=== PATIENT | male | born 1965 | race Two or more races ===

== ENCOUNTER 2017-06-29 11:49 | Inpatient (IN) | payer OTHER ==
[~2017-06-29] VITALS: Ht 182.9 cm; Wt 93.6 kg
[~2017-06-29 11:49] MED LIST: ACET-1757 PO; ALLO300T PO; ALPR-475 PO; BENA10TA2 PO; BISA10SU2 PO; BISA10SU2 PR; DOCU-131 PO; DOCU100T3 PO; HYDR-3237 PO; INSU100V11 SQ-INSULIN; LACT10SO28 PO; LISI-170 PO; LORA1TAB PO; MORP15TA PO; ONDA4TAB10 PO; ONDA8TAB15 PO; OXYC5TAB3 PO; POLY17PO5 PO; PRED50TA PO; PROM25TA10 PO; SENN-31 PO; SENN-87 PO
[2017-06-29] MEDS ORDERED: ONDANSETRON 2MG/ML, 2ML ONE (12:55)
[2017-06-29] MEDS ORDERED: MORPHINE SULFATE 4 MG/ML, 1ML ONE (12:55)
[2017-06-29] MEDS ORDERED: ALBUTEROL SULFATE 2.5 MG/3 ML NPPB ONE (13:00)
[2017-06-29] MEDS ORDERED: MORPHINE SULFATE 4 MG/ML, 1ML IVPush PRN (13:00)
[2017-06-29] MEDS ORDERED: SODIUM CHLORIDE FLUSH 10ML SYR IVF ONE (13:00)
[2017-06-29] MEDS ORDERED: ONDANSETRON 2MG/ML, 2ML IVPush ONE (13:00)
[2017-06-29] MEDS ORDERED: SODIUM CHLORIDE 0.9% 1,000ML IVBOLUS ONE (13:00)
[2017-06-29 13:12] LABS: HEMATOCRIT 47.4 % (39.2-51.8); HEMOGLOBIN 16.3 g/dL (13.7-18.0); WHITE BLOOD COUNT 9.9 x10^3/uL (3.4-10)
[2017-06-29 13:21] LABS: ASPARTATE AMINO TRANSFERASE 37 U/L (15-37); BLOOD UREA NITROGEN 13 mg/dL (7-18)
[2017-06-29] MEDS ORDERED: ALBUTEROL SULFATE 2.5 MG/3 ML ONE (13:39)
[2017-06-29 13:40] LABS: RAPID INFLUENZA A POSITIVE (Negative); RAPID INFLUENZA B Negative (Negative)
[2017-06-29 14:00] VITALS: BP 133/72
[2017-06-29 14:00] LABS: IS PT STATUS REG ER OR PRE ER? YES
[2017-06-29] MEDS ORDERED: OMNIPAQUE 350 MG/ML, 100ML BOTTLE ONE (14:34)
[2017-06-29] MEDS ORDERED: ACETAMINOPHEN 500 MG TABLET ONE (14:50)
[2017-06-29] MEDS ORDERED: ACETAMINOPHEN 500 MG TABLET PO ONE (15:00)
[2017-06-29] MEDS ORDERED: ONDANSETRON ODT 4 MG PO PRN (15:30)
[2017-06-29] MEDS ORDERED: ACETAMINOPHEN 325 MG TABLET PO PRN (15:30)
[2017-06-29 15:53] LABS: PATH.CAST-FLAG NOT PRESENT; SPERM-FLAG NOT PRESENT; SRC-FLAG NOT PRESENT; XTAL-FLAG NOT PRESENT; YLC-FLAG NOT PRESENT
[2017-06-29] MEDS: ONDANSETRON 2MG/ML, 2ML IVPush PRN ×2 (16:09→21:43)
[2017-06-29] MEDS: ENOXAPARIN 40 MG/0.4 ML SQ SCH (16:39)
[2017-06-29] MEDS: PIPERACILLIN/TAZO/PMX 3.375GM 50 ML IV SCH (16:39)
[2017-06-29] MEDS: SODIUM CHLORIDE 0.9% 1,000 ML IV SCH (16:40)
[2017-06-29 17:41] VITALS: BP 123/73
[2017-06-29 19:02] VITALS: BP 130/74
[2017-06-29] MEDS: OSELTAMIVIR 75 MG CAPSULE PO SCH (21:37)
[2017-06-30] MEDS: PIPERACILLIN/TAZO/PMX 3.375GM 50 ML IV SCH ×4 (00:21→23:28)
[2017-06-30 02:52] VITALS: BP 120/71
[2017-06-30] MEDS: ONDANSETRON 2MG/ML, 2ML IVPush PRN ×5 (03:49→20:42)
[2017-06-30] MEDS: SODIUM CHLORIDE 0.9% 1,000 ML IV SCH ×2 (03:50→14:28)
[2017-06-30 05:49] LABS: BLOOD UREA NITROGEN 11 mg/dL (7-18)
[2017-06-30 05:53] LABS: ASPARTATE AMINO TRANSFERASE 34 U/L (15-37); LACTATE DEHYDROGENASE 240 U/L (87-241)
[2017-06-30 06:07] LABS: HEMATOCRIT 39.5 % (39.2-51.8)
[2017-06-30 07:59] VITALS: BP 152/90
[2017-06-30] MEDS: OSELTAMIVIR 75 MG CAPSULE PO SCH ×2 (08:46→20:29)
[2017-06-30] MEDS ORDERED: PHENOL THROAT SPRAY BOTTLE MM PRN (12:30)
[2017-06-30] MEDS ORDERED: LIDOCAINE 1%, 20ML ONE ×2 (13:41→14:30)
[2017-06-30 15:23] VITALS: BP 119/80
[2017-06-30 15:24] LABS: CYTOLOGY BODY FLUID RECD INTO PATHOLOGY; CYTOLOGY BODY FLUID SOURCE PLEURAL FLUID
[2017-06-30 19:36] VITALS: BP 99/63
[2017-06-30] MEDS: ENOXAPARIN 40 MG/0.4 ML SQ SCH (20:30)
[2017-07-01 00:44] VITALS: BP 118/76
[2017-07-01] MEDS: ONDANSETRON 2MG/ML, 2ML IVPush PRN ×5 (03:35→23:45)
[2017-07-01 05:03] LABS: HEMOGLOBIN 13.9 g/dL (13.7-18.0); WHITE BLOOD COUNT 4.1 x10^3/uL (3.4-10)
[2017-07-01 05:10] LABS: ASPARTATE AMINO TRANSFERASE 33 U/L (15-37); BLOOD UREA NITROGEN 12 mg/dL (7-18)
[2017-07-01] MEDS: SODIUM CHLORIDE 0.9% 1,000 ML IV SCH ×3 (05:33→19:57)
[2017-07-01 07:28] VITALS: BP 123/76
[2017-07-01] MEDS: OSELTAMIVIR 75 MG CAPSULE PO SCH ×2 (08:58→19:50)
[2017-07-01] MEDS: PIPERACILLIN/TAZO/PMX 3.375GM 50 ML IV SCH ×3 (08:58→23:46)
[2017-07-01 13:10] VITALS: BP 115/68
[2017-07-01] MEDS ORDERED: POLYETHYLENE GLYCOL 17 GM PACKET ONE (17:48)
[2017-07-01] MEDS ORDERED: POLYETHYLENE GLYCOL 17 GM PACKET NG PRN (18:00)
[2017-07-01 19:42] VITALS: BP 126/78
[2017-07-01] MEDS: ENOXAPARIN 40 MG/0.4 ML SQ SCH (19:50)
[2017-07-02 03:26] VITALS: BP 122/72
[2017-07-02] MEDS: ONDANSETRON 2MG/ML, 2ML IVPush PRN ×2 (04:16→19:52)
[2017-07-02 04:51] LABS: BLOOD UREA NITROGEN 9 mg/dL (7-18)
[2017-07-02 04:52] LABS: HEMATOCRIT 39.2 % (39.2-51.8); HEMOGLOBIN 13.6 g/dL (13.7-18.0); WHITE BLOOD COUNT 2.8 x10^3/uL (3.4-10)
[2017-07-02 06:14] LABS: DIFF TOTAL CELLS COUNTED 100 CELL DIFF
[2017-07-02 06:18] LABS: VERIFY COUNTS? YES
[2017-07-02 08:30] VITALS: BP 113/73
[2017-07-02] MEDS: PIPERACILLIN/TAZO/PMX 3.375GM 50 ML IV SCH (08:33)
[2017-07-02] MEDS: OSELTAMIVIR 75 MG CAPSULE PO SCH ×2 (08:33→20:55)
[2017-07-02 13:04] VITALS: BP 123/71
[2017-07-02] MEDS: PIPERACILLIN/TAZO 3.375 GM in SODIUM CHLORIDE 0.9% 50 ML IV SCH (16:06)
[2017-07-02 19:14] VITALS: BP 111/68
[2017-07-02] MEDS: ENOXAPARIN 40 MG/0.4 ML SQ SCH (20:55)
[2017-07-02] MEDS: SODIUM CHLORIDE 0.9% 1,000 ML IV SCH (20:57)
[2017-07-02 22:53] VITALS: BP 122/74
[2017-07-03 01:33] VITALS: BP 102/63
[2017-07-03 05:05] LABS: HEMOGLOBIN 15.5 g/dL (13.7-18.0); WHITE BLOOD COUNT 3.2 x10^3/uL (3.4-10)
[2017-07-03 07:09] VITALS: BP 134/88
[2017-07-03] MEDS ORDERED: AZIT500T5 PO (07:56)
[2017-07-03] MEDS ORDERED: AMOX-291 PO (07:56)
[2017-07-03] MEDS ORDERED: OSEL75CA PO (07:56)
[2017-07-03] MEDS: OSELTAMIVIR 75 MG CAPSULE PO SCH (08:49)
[2017-07-03] MEDS: PIPERACILLIN/TAZO 3.375 GM in SODIUM CHLORIDE 0.9% 50 ML IV SCH ×2 (08:49)
== END 2017-07-03 10:28 | disposition home or self-care (01) | DRG 872 ==
LOC: ED 13:51 → EDIP 14:12 → 3NE 15:31 → 3NW 18:29
PROVIDERS: ADMIT Hospitalist; ATTEND Hospitalist
PROC: 0W993ZZ Drainage of Right Pleural Cavity, Percutaneous Approach (ICD-10-PCS; principal; 2017-06-30)
PROC: BB4BZZZ Ultrasonography of Pleura (ICD-10-PCS; 2017-06-30)
DX: A41.9 Sepsis, unspecified organism (principal); J90 Pleural effusion, not elsewhere classified; Z94.84 Stem cells transplant status; E11.9 Type 2 diabetes mellitus without complications; E86.0 Dehydration; I10 Essential (primary) hypertension; K59.00 Constipation, unspecified; J11.1 Influenza due to unidentified influenza virus with other respiratory manifestations; Z79.84 Long term (current) use of oral hypoglycemic drugs; Z83.3 Family history of diabetes mellitus
CPT/HCPCS: 32555; 36415; 71010; 71020; 71275; 74177; 80048; 80053; 81001; 82945; 83605; 83615; 83690; 83735; 83880; 84145; 84157; 84484; 85025; 87040; 87070; 87081; 87205; 87324; 87400; 87880; 88112; 88305; 89051; 89055; 93005; 94640; 96361; 96374; 96375; J1650; J2405; J2543; J3490; J7613; Q0162; Q9967; J7030

== ENCOUNTER → 2017-07-21 | Outpatient (CLI) | payer OTHER ==
[~2017-07-21] MED LIST changes: +AMOX-291 PO; +AZIT500T5 PO; +OSEL75CA PO
== END ==
LOC: PETCFH 13:49
PROVIDERS: ATTEND Internal Medicine Hematology & Oncology
DX: C83.38 Diffuse large B-cell lymphoma, lymph nodes of multiple sites (principal); C82.30 Follicular lymphoma grade IIIa, unspecified site; J90 Pleural effusion, not elsewhere classified
CPT/HCPCS: 78815; A9552

== ENCOUNTER 2018-02-06 16:11 | Inpatient (IN) | payer OTHER ==
[~2018-02-06] VITALS: Ht 182.9 cm; Wt 84.6 kg
[~2018-02-06 16:11] MED LIST changes: -BENA10TA2 PO; +BENA10TA4 PO
[2018-02-06 16:58] VITALS: BP 138/86
[2018-02-06] MEDS ORDERED: ENALAPRILAT 1.25 MG/ML, 2ML IVPush PRN (17:30)
[2018-02-06] MEDS: PLEASE ENTER HEIGHT AND WEIGHT MC SCH ×2 (17:30→19:38)
[2018-02-06] MEDS ORDERED: MAALOX/HYOSCYAMINE/LIDOCAINE 45 ML BTL PO PRN (17:30)
[2018-02-06] MEDS ORDERED: LABETALOL 5MG/ML, 20ML IVPush PRN (17:30)
[2018-02-06] MEDS ORDERED: ONDANSETRON 2MG/ML, 2ML IVPush PRN (17:30)
[2018-02-06] MEDS ORDERED: DOCUSATE 100 MG CAPSULE PO PRN (17:30)
[2018-02-06] MEDS ORDERED: BISACODYL 10 MG SUPP PR PRN (17:30)
[2018-02-06] MEDS ORDERED: ACETAMINOPHEN 325 MG TABLET PO PRN (17:30)
[2018-02-06] MEDS ORDERED: POLYETHYLENE GLYCOL 17 GM PACKET PO PRN (17:30)
[2018-02-06] MEDS ORDERED: HYDROcodone/APAP 5/325 TABLET PO PRN (17:30)
[2018-02-06 18:30] LABS: BASOPHILS # (AUTO) 0.02 x10^3/uL (0-0.1); BASOPHILS % (AUTO) 0 % (0-1); EOSINOPHILS # (AUTO) 0.18 x10^3/uL (0-0.4); EOSINOPHILS % (AUTO) 2 % (1-7); LYMPHOCYTES % (AUTO) 10 % (22-44); MD NO; MEAN CORPUSCULAR HEMOGLOBIN 33.6 pg (27.5-34.5); MEAN CORPUSCULAR HGB CONC 34.7 g/dL (33.2-36.2); MEAN CORPUSCULAR VOLUME 96.9 fL (81-97); MEAN PLATELET VOLUME 7.1 fL (7.4-10.4); MONOCYTES # (AUTO) 0.71 x10^3/uL (0.2-0.8); MONOCYTES % (AUTO) 7 % (2-9); NEUTROPHILS # (AUTO) 8.43 x10^3/uL (1.8-6.8); NEUTROPHILS % (AUTO) 82 % (42-75); PLATELET COUNT 264 x10^3/uL (130-400); RED CELL DISTRIBUTION WIDTH 13.6 % (9.4-14.8)
[2018-02-06] MEDS ORDERED: GUAIFENESIN 100 MG/5 ML, 10ML UDC ONE (18:38)
[2018-02-06] MEDS: GUAIFENESIN/DM 200-20MG, 10ML UDC PO PRN (18:41)
[2018-02-06] MEDS ORDERED: GUAIFENESIN/DM 200-20MG, 10ML UDC ONE (18:41)
[2018-02-06 18:43] LABS: ALBUMIN 3.8 g/dL (3.4-5.0); ANION GAP 6 mmol/L (5-15); CALCIUM 9.1 mg/dL (8.5-10.1); CHLORIDE 106 mmol/L (98-107)
[2018-02-06 18:48] LABS: ALANINE AMINOTRANSFERASE 23 U/L (12-78); ALKALINE PHOSPHATASE 107 U/L (45-117); BILIRUBIN,TOTAL 0.7 mg/dL (0.2-1.0); CREATININE 0.97 mg/dL (0.7-1.3); TOTAL PROTEIN 6.7 g/dL (6.4-8.2)
[2018-02-06 19:50] VITALS: BP 147/84
[2018-02-06] MEDS: FAMOTIDINE 20 MG TABLET PO SCH (20:11)
[2018-02-06 22:50] LABS: MICROSCOPIC NOT IND
[2018-02-06 22:54] LABS: CULTURE INDICATED? NO
[2018-02-07 00:51] VITALS: BP 143/75
[2018-02-07] MEDS: PLEASE ENTER HEIGHT AND WEIGHT MC SCH ×3 (07:44→19:37)
[2018-02-07] MEDS: FAMOTIDINE 20 MG TABLET PO SCH ×2 (07:52→19:24)
[2018-02-07] MEDS: GUAIFENESIN/DM 200-20MG, 10ML UDC PO PRN ×2 (07:52→17:09)
[2018-02-07] MEDS: morphine SULFATE 10 MG/ML, 1ML IVPush PRN (08:11)
[2018-02-07 08:20] VITALS: BP 136/80
[2018-02-07 13:50] VITALS: BP 131/82
[2018-02-07 19:04] VITALS: BP 143/85
[2018-02-07] MEDS: ONDANSETRON ODT 4 MG PO PRN (19:24)
[2018-02-08] MEDS: GUAIFENESIN/DM 200-20MG, 10ML UDC PO PRN ×3 (01:47→20:01)
[2018-02-08 03:58] VITALS: BP 118/78
[2018-02-08] MEDS: FAMOTIDINE 20 MG TABLET PO SCH ×2 (07:33→20:00)
[2018-02-08 07:44] VITALS: BP 124/81
[2018-02-08 14:11] VITALS: BP 130/71
[2018-02-08] MEDS ORDERED: LIDOCAINE-MPF 1%, 2ML ONE ×2 (15:38)
[2018-02-08] MEDS: morphine SULFATE 10 MG/ML, 1ML IVPush PRN (17:10)
[2018-02-08 19:52] VITALS: BP 119/72
[2018-02-09 00:56] VITALS: BP 122/75
[2018-02-09] MEDS: GUAIFENESIN/DM 200-20MG, 10ML UDC PO PRN (02:15)
[2018-02-09 05:27] LABS: BASOPHILS # (AUTO) 0.01 x10^3/uL (0-0.1); BASOPHILS % (AUTO) 0 % (0-1); EOSINOPHILS # (AUTO) 0.33 x10^3/uL (0-0.4); EOSINOPHILS % (AUTO) 3 % (1-7); LYMPHOCYTES # (AUTO) 0.89 x10^3/uL (1-3.4); LYMPHOCYTES % (AUTO) 9 % (22-44); MD NO; MEAN CORPUSCULAR HEMOGLOBIN 32.7 pg (27.5-34.5); MEAN CORPUSCULAR HGB CONC 33.9 g/dL (33.2-36.2); MEAN CORPUSCULAR VOLUME 96.5 fL (81-97); MEAN PLATELET VOLUME 6.9 fL (7.4-10.4); MONOCYTES # (AUTO) 1.03 x10^3/uL (0.2-0.8); MONOCYTES % (AUTO) 11 % (2-9); NEUTROPHILS # (AUTO) 7.39 x10^3/uL (1.8-6.8); NEUTROPHILS % (AUTO) 77 % (42-75); PLATELET COUNT 251 x10^3/uL (130-400); RED BLOOD COUNT 4.66 x10^6/uL (4.38-5.82); RED CELL DISTRIBUTION WIDTH 13.3 % (9.4-14.8)
[2018-02-09 05:33] LABS: ANION GAP 6 mmol/L (5-15); CALCIUM 8.9 mg/dL (8.5-10.1); CHLORIDE 107 mmol/L (98-107); CREATININE 1.04 mg/dL (0.7-1.3)
[2018-02-09 07:48] VITALS: BP 120/76
[2018-02-09] MEDS: FAMOTIDINE 20 MG TABLET PO SCH ×2 (07:57→20:03)
[2018-02-09] MEDS ORDERED: MORPHINE SULFATE 4 MG/ML, 1ML ONE (10:48)
[2018-02-09] MEDS: morphine SULFATE 10 MG/ML, 1ML IVPush PRN (10:54)
[2018-02-09] MEDS ORDERED: BUPIVACAINE/PF-EPI 0.5% 1:200K ONE (13:09)
[2018-02-09] MEDS ORDERED: THROMBIN 20,000 UNIT VIAL TP ONE (13:10)
[2018-02-09] MEDS ORDERED: MICROFIBRILLAR COLLAGEN 1 GM TP ONE (13:10)
[2018-02-09 13:20] VITALS: BP 143/96
[2018-02-09] MEDS ORDERED: FENTANYL PF 250 MCG/5ML ONE (13:20)
[2018-02-09] MEDS ORDERED: MIDAZOLAM 1 MG/ML, 2ML ONE (13:20)
[2018-02-09] MEDS ORDERED: PROPOFOL 10 MG/ML, 20ML ONE ×2 (14:02→15:12)
[2018-02-09] MEDS ORDERED: CEFAZOLIN 1,000 MG ONE (14:02)
[2018-02-09] MEDS ORDERED: DEXAMETHASONE 4 MG/ML, 1ML ONE (14:02)
[2018-02-09] MEDS ORDERED: LABETALOL 5MG/ML, 20ML ONE (14:02)
[2018-02-09] MEDS ORDERED: DOXYCYCLINE 100 MG ONE ×2 (14:27→14:33)
[2018-02-09] MEDS ORDERED: DOXYCYCLINE 100 MG in DEXTROSE 5% 250 ML IV ONE (14:30)
[2018-02-09] MEDS ORDERED: hydrALAzine 20 MG/ML, 1ML IV PRN (15:00)
[2018-02-09] MEDS ORDERED: OXYcodone 5 MG/5 ML ORAL.SOL UDC PO PRN (15:00)
[2018-02-09] MEDS ORDERED: LABETALOL 5MG/ML, 20ML IV PRN (15:00)
[2018-02-09] MEDS ORDERED: PROMETHAZINE 12.5 MG SUPP PR PRN (15:00)
[2018-02-09] MEDS ORDERED: ONDANSETRON 2MG/ML, 2ML IV PRN ×2 (15:00→18:00)
[2018-02-09] MEDS ORDERED: ACETAMINOPHEN 325 MG TABLET PO PRN (15:00)
[2018-02-09] MEDS ORDERED: MEPERIDINE/PF 25MG/0.5ML IVPush PRN (15:00)
[2018-02-09] MEDS ORDERED: MORPHINE SULFATE 4 MG/ML, 1ML IVPush PRN (15:00)
[2018-02-09] MEDS ORDERED: ONDANSETRON 2MG/ML, 2ML ONE (15:11)
[2018-02-09] MEDS ORDERED: ROCURONIUM 10MG/ML,5ML ONE (15:12)
[2018-02-09] MEDS ORDERED: OXYcodone 5 MG/5 ML ORAL.SOL UDC ONE (15:26)
[2018-02-09] MEDS ORDERED: FENTANYL PF 100 MCG/2ML ONE ×2 (15:26→15:43)
[2018-02-09] MEDS: FENTANYL PF 100 MCG/2ML IV PRN ×4 (15:28→16:00)
[2018-02-09] MEDS ORDERED: HYDROmorphone 2 MG/ML, 1ML ONE ×2 (15:33→15:43)
[2018-02-09] MEDS: HYDROmorphone 1 MG/ML, 1ML IV PRN ×4 (15:35→15:56)
[2018-02-09] MEDS: ONDANSETRON ODT 4 MG PO PRN (17:52)
[2018-02-09] MEDS ORDERED: LACTATED RINGERS 500 ML IV PRN (18:00)
[2018-02-09] MEDS: ACETAMINOPHEN 500 MG TABLET PO SCH ×2 (18:29→23:56)
[2018-02-09 19:09] VITALS: BP 131/82
[2018-02-09] MEDS: POTASSIUM CHLORIDE 20 MEQ in D5%-0.45% NACL 1,000 ML IV SCH (20:03)
[2018-02-09] MEDS: SODIUM CHLORIDE FLUSH 10ML SYR IVF SCH (20:03)
[2018-02-09] MEDS: morphine SULFATE 10 MG/ML, 1ML IV PRN (23:20)
[2018-02-10 00:17] VITALS: BP 125/79
[2018-02-10] MEDS: morphine SULFATE 10 MG/ML, 1ML IV PRN ×5 (02:22→23:10)
[2018-02-10 05:43] VITALS: BP 124/83
[2018-02-10] MEDS: ACETAMINOPHEN 500 MG TABLET PO SCH ×3 (06:06→18:00)
[2018-02-10 07:29] VITALS: BP 125/76
[2018-02-10] MEDS: ENOXAPARIN 40 MG/0.4 ML SQ SCH (08:22)
[2018-02-10] MEDS: FAMOTIDINE 20 MG TABLET PO SCH ×2 (08:22→19:37)
[2018-02-10] MEDS: SODIUM CHLORIDE FLUSH 10ML SYR IVF SCH ×2 (08:23→19:37)
[2018-02-10] MEDS ORDERED: LIDOCAINE 1%-EPI 1:100K, 20ML INFIL ONE (08:30)
[2018-02-10] MEDS: POTASSIUM CHLORIDE 20 MEQ in D5%-0.45% NACL 1,000 ML IV SCH (10:56)
[2018-02-10 14:30] VITALS: BP 151/99
[2018-02-10 18:46] VITALS: BP 120/77
[2018-02-11] MEDS: POTASSIUM CHLORIDE 20 MEQ in D5%-0.45% NACL 1,000 ML IV SCH ×2 (00:22→12:33)
[2018-02-11] MEDS: ACETAMINOPHEN 500 MG TABLET PO SCH ×4 (00:22→17:20)
[2018-02-11 03:44] VITALS: BP 129/82
[2018-02-11] MEDS: morphine SULFATE 10 MG/ML, 1ML IV PRN ×2 (05:26→11:01)
[2018-02-11] MEDS: ENOXAPARIN 40 MG/0.4 ML SQ SCH (07:39)
[2018-02-11] MEDS: OXYcodone IR 5MG TABLET PO PRN ×3 (07:39→21:33)
[2018-02-11] MEDS: FAMOTIDINE 20 MG TABLET PO SCH ×2 (07:39→21:20)
[2018-02-11] MEDS: SODIUM CHLORIDE FLUSH 10ML SYR IVF SCH ×2 (07:40→21:21)
[2018-02-11 08:18] VITALS: BP 127/86
[2018-02-11 14:30] VITALS: BP 115/76
[2018-02-11 19:15] VITALS: BP 112/72
[2018-02-11] MEDS: ONDANSETRON ODT 4 MG PO PRN (21:27)
[2018-02-12 01:25] VITALS: BP 106/67
[2018-02-12] MEDS: POTASSIUM CHLORIDE 20 MEQ in D5%-0.45% NACL 1,000 ML IV SCH (01:52)
[2018-02-12] MEDS: morphine SULFATE 10 MG/ML, 1ML IV PRN ×2 (03:18→08:43)
[2018-02-12] MEDS: OXYcodone IR 5MG TABLET PO PRN ×2 (03:58→12:16)
[2018-02-12] MEDS: ACETAMINOPHEN 500 MG TABLET PO SCH ×3 (06:19→12:16)
[2018-02-12 07:05] VITALS: BP 134/84
[2018-02-12] MEDS: SODIUM CHLORIDE FLUSH 10ML SYR IVF SCH (08:10)
[2018-02-12] MEDS: ENOXAPARIN 40 MG/0.4 ML SQ SCH (08:10)
[2018-02-12] MEDS: FAMOTIDINE 20 MG TABLET PO SCH (08:10)
[2018-02-12] MEDS ORDERED: OXYC5CAP2 PO (10:17)
[2018-02-12 11:28] VITALS: BP 122/78
== END 2018-02-12 12:33 | disposition home or self-care (01) | DRG 164 ==
LOC: 5SO 16:11 → 4NOR 02-09 16:58
PROVIDERS: ADMIT Internal Medicine; ATTEND Internal Medicine
PROC: 07B74ZX Excision of Thorax Lymphatic, Percutaneous Endoscopic Approach, Diagnostic (ICD-10-PCS; 2018-02-09)
PROC: 0BBN4ZX Excision of Right Pleura, Percutaneous Endoscopic Approach, Diagnostic (ICD-10-PCS; 2018-02-09)
PROC: 3E0L4GC Introduction of Other Therapeutic Substance into Pleural Cavity, Percutaneous Endoscopic Approach (ICD-10-PCS; 2018-02-09)
PROC: 0W994ZX Drainage of Right Pleural Cavity, Percutaneous Endoscopic Approach, Diagnostic (ICD-10-PCS; 2018-02-09)
PROC: 0BBN4ZZ Excision of Right Pleura, Percutaneous Endoscopic Approach (ICD-10-PCS; principal; 2018-02-09 15:00)
DX: J90 Pleural effusion, not elsewhere classified (principal); I31.3 Pericardial effusion (noninflammatory); Z94.84 Stem cells transplant status; E11.40 Type 2 diabetes mellitus with diabetic neuropathy, unspecified; R59.0 Localized enlarged lymph nodes; Z79.84 Long term (current) use of oral hypoglycemic drugs; Z82.49 Family history of ischemic heart disease and other diseases of the circulatory system; Z85.72 Personal history of non-Hodgkin lymphomas; Z87.891 Personal history of nicotine dependence; Z92.21 Personal history of antineoplastic chemotherapy
CPT/HCPCS: 36415; 71045; 80048; 80053; 81003; 83690; 83735; 83880; 84100; 84145; 85025; 87070; 87075; 87081; 87205; 87880; 88112; 88305; 88331; 88341; 88342; 88360; C1729; J0690; J1100; J1170; J1650; J2250; J2405; J2704; J3010; J3480; J3490; J7060; Q0162; G0461; J2270

== ENCOUNTER → 2018-02-17 | Outpatient (CLI) | payer OTHER ==
[~2018-02-17] MED LIST changes: +OXYC5CAP2 PO
== END | disposition home or self-care (01) ==
LOC: PETCFH 10:48
PROVIDERS: ATTEND Internal Medicine Hematology & Oncology
DX: T81.82XA Emphysema (subcutaneous) resulting from a procedure, initial encounter (principal); J32.0 Chronic maxillary sinusitis; J90 Pleural effusion, not elsewhere classified; C83.38 Diffuse large B-cell lymphoma, lymph nodes of multiple sites; C82.30 Follicular lymphoma grade IIIa, unspecified site; D80.3 Selective deficiency of immunoglobulin G [IgG] subclasses
CPT/HCPCS: 78815; A9552

== ENCOUNTER 2018-02-20 10:44 | Inpatient (IN) | payer OTHER ==
[~2018-02-20] VITALS: Ht 182.9 cm; Wt 98.5 kg
[2018-02-20 14:40] VITALS: BP 103/65
[2018-02-20 14:51] LABS: BASOPHILS # (AUTO) 0.03 x10^3/uL (0-0.1); BASOPHILS % (AUTO) 0 % (0-1); EOSINOPHILS % (AUTO) 2 % (1-7); LYMPHOCYTES # (AUTO) 0.72 x10^3/uL (1-3.4); LYMPHOCYTES % (AUTO) 7 % (22-44); MD NO; MEAN CORPUSCULAR HEMOGLOBIN 32.4 pg (27.5-34.5); MEAN CORPUSCULAR HGB CONC 33.8 g/dL (33.2-36.2); MEAN CORPUSCULAR VOLUME 95.7 fL (81-97); MEAN PLATELET VOLUME 6.7 fL (7.4-10.4); MONOCYTES # (AUTO) 0.72 x10^3/uL (0.2-0.8); MONOCYTES % (AUTO) 8 % (2-9); NEUTROPHILS # (AUTO) 7.99 x10^3/uL (1.8-6.8); NEUTROPHILS % (AUTO) 83 % (42-75); PLATELET COUNT 346 x10^3/uL (130-400); RED BLOOD COUNT 3.69 x10^6/uL (4.38-5.82); RED CELL DISTRIBUTION WIDTH 12.6 % (9.4-14.8)
[2018-02-20 15:02] LABS: ALANINE AMINOTRANSFERASE 27 U/L (12-78); ALBUMIN 2.9 g/dL (3.4-5.0); ANION GAP 7 mmol/L (5-15); CALCIUM 8.6 mg/dL (8.5-10.1); CHLORIDE 108 mmol/L (98-107); CREATININE 1.04 mg/dL (0.7-1.3)
[2018-02-20 15:04] LABS: ALKALINE PHOSPHATASE 103 U/L (45-117); BILIRUBIN,TOTAL 0.2 mg/dL (0.2-1.0); TOTAL PROTEIN 5.8 g/dL (6.4-8.2)
[2018-02-20] MEDS ORDERED: LIDOCAINE-MPF 1%, 2ML ONE (15:12)
[2018-02-20] MEDS ORDERED: OXYcodone ORAL.CONC 20 MG/ML ONE (15:45)
[2018-02-20] MEDS ORDERED: ONDANSETRON 2MG/ML, 2ML ONE (15:47)
[2018-02-20] MEDS: ONDANSETRON 2MG/ML, 2ML IVPush PRN (15:50)
[2018-02-20] MEDS: OXYcodone 5 MG/5 ML ORAL.SOL UDC PO PRN ×2 (15:52→22:33)
[2018-02-20] MEDS ORDERED: PROCHLORPERAZINE 5 MG/ML, 2ML IVPush PRN (16:00)
[2018-02-20] MEDS ORDERED: ONDANSETRON 8 MG TABLET PO PRN (16:00)
[2018-02-20] MEDS ORDERED: ACETAMINOPHEN 325 MG TABLET PO ONE (17:00)
[2018-02-20] MEDS: predniSONE 50MG TABLET PO SCH (17:20)
[2018-02-20] MEDS: FAMOTIDINE 20 MG/2 ML IVPush SCH (17:20)
[2018-02-20] MEDS: DIPHENHYDRAMINE 50 MG/ML, 1ML IVPush SCH (17:20)
[2018-02-20] MEDS ORDERED: SODIUM CHLORIDE 0.9% IV ONE (17:30)
[2018-02-20] MEDS ORDERED: RITUXIMAB IV ONE (17:30)
[2018-02-20 19:33] VITALS: BP 108/69
[2018-02-21] MEDS ORDERED: ONDANSETRON 12 MG, DEXAMETHASONE 10 MG in SODIUM CHLORIDE 0.9% 50 ML IVPB ONE ×2 (01:00→16:30)
[2018-02-21] MEDS ORDERED: FOSAPREPITANT 150 MG in SODIUM CHLORIDE 0.9% 145 ML IV ONE ×2 (01:00→16:30)
[2018-02-21] MEDS ORDERED: VINCRISTINE IV SCH (02:00)
[2018-02-21] MEDS ORDERED: [UNRECOGNIZED DRUG - OTHER] IV SCH (02:00)
[2018-02-21] MEDS ORDERED: ETOPOSIDE IV SCH (02:00)
[2018-02-21] MEDS ORDERED: DOXORUBICIN IV SCH (02:00)
[2018-02-21 04:56] VITALS: BP 132/80
[2018-02-21] MEDS: OXYcodone 5 MG/5 ML ORAL.SOL UDC PO PRN (05:06)
[2018-02-21] MEDS ORDERED: MORPHINE SULFATE 4 MG/ML, 1ML ONE (07:17)
[2018-02-21] MEDS: MORPHINE SULFATE 4 MG/ML, 1ML IV PRN ×2 (07:20→20:53)
[2018-02-21] MEDS ORDERED: MAGNESIUM HYDROXIDE 8%, 30ML UDC PO PRN (07:30)
[2018-02-21 08:00] VITALS: BP 115/74
[2018-02-21] MEDS: predniSONE 50MG TABLET PO SCH (08:21)
[2018-02-21] MEDS: ONDANSETRON 2MG/ML, 2ML IVPush PRN (08:21)
[2018-02-21] MEDS: ENOXAPARIN 40 MG/0.4 ML SQ SCH (08:22)
[2018-02-21 14:35] VITALS: BP 123/74
[2018-02-21] MEDS: OXYcodone IR 5MG TABLET PO PRN ×2 (15:47→20:10)
[2018-02-21] MEDS: DIPHENHYDRAMINE 50 MG/ML, 1ML IVPush SCH (16:30)
[2018-02-21] MEDS: FAMOTIDINE 20 MG/2 ML IVPush SCH (16:31)
[2018-02-21] MEDS: ETOPOSIDE IV SCH (17:18)
[2018-02-21] MEDS: [UNRECOGNIZED DRUG - OTHER] IV SCH (17:18)
[2018-02-21] MEDS: DOXORUBICIN IV SCH (17:18)
[2018-02-21] MEDS: VINCRISTINE IV SCH (17:18)
[2018-02-21 19:21] VITALS: BP 111/66
[2018-02-22 01:22] VITALS: BP 116/72
[2018-02-22] MEDS: OXYcodone IR 5MG TABLET PO PRN ×3 (06:21→20:13)
[2018-02-22 06:24] LABS: MEAN CORPUSCULAR HEMOGLOBIN 32.8 pg (27.5-34.5); MEAN CORPUSCULAR HGB CONC 34.1 g/dL (33.2-36.2); MEAN CORPUSCULAR VOLUME 96.4 fL (81-97); MEAN PLATELET VOLUME 7.1 fL (7.4-10.4); PLATELET COUNT 325 x10^3/uL (130-400); RED BLOOD COUNT 3.71 x10^6/uL (4.38-5.82); RED CELL DISTRIBUTION WIDTH 12.8 % (9.4-14.8)
[2018-02-22 06:36] LABS: ALANINE AMINOTRANSFERASE 23 U/L (12-78); ALBUMIN 2.9 g/dL (3.4-5.0); ANION GAP 7 mmol/L (5-15); CALCIUM 8.6 mg/dL (8.5-10.1); CHLORIDE 113 mmol/L (98-107); CREATININE 0.79 mg/dL (0.7-1.3)
[2018-02-22 06:38] LABS: ALKALINE PHOSPHATASE 96 U/L (45-117); BILIRUBIN,TOTAL 0.2 mg/dL (0.2-1.0); TOTAL PROTEIN 5.6 g/dL (6.4-8.2)
[2018-02-22 07:05] LABS: BASOPHILS % (AUTO) 0 % (0-1); EOSINOPHILS % (AUTO) 0 % (1-7); LYMPHOCYTES # (AUTO) 0.54 x10^3/uL (1-3.4); LYMPHOCYTES % (AUTO) 2 % (22-44); MD SCAN; MONOCYTES # (AUTO) 0.17 x10^3/uL (0.2-0.8); MONOCYTES % (AUTO) 1 % (2-9); NEUTROPHILS # (AUTO) 22.12 x10^3/uL (1.8-6.8); NEUTROPHILS % (AUTO) 97 % (42-75)
[2018-02-22 07:24] VITALS: BP 110/67
[2018-02-22] MEDS: ENOXAPARIN 40 MG/0.4 ML SQ SCH (10:17)
[2018-02-22] MEDS: predniSONE 50MG TABLET PO SCH (10:17)
[2018-02-22 12:36] VITALS: BP 124/73
[2018-02-22] MEDS: DIPHENHYDRAMINE 50 MG/ML, 1ML IVPush SCH (16:42)
[2018-02-22] MEDS: ONDANSETRON 12 MG in SODIUM CHLORIDE 0.9% 50 ML IVPB SCH (16:42)
[2018-02-22] MEDS: FAMOTIDINE 20 MG/2 ML IVPush SCH (16:42)
[2018-02-22] MEDS: ETOPOSIDE IV SCH (18:14)
[2018-02-22] MEDS: [UNRECOGNIZED DRUG - OTHER] IV SCH (18:14)
[2018-02-22] MEDS: DOXORUBICIN IV SCH (18:14)
[2018-02-22] MEDS: VINCRISTINE IV SCH (18:14)
[2018-02-22 20:01] VITALS: BP 130/77
[2018-02-23 00:12] VITALS: BP 110/66
[2018-02-23] MEDS: MORPHINE SULFATE 4 MG/ML, 1ML IV PRN (01:50)
[2018-02-23] MEDS: OXYcodone IR 5MG TABLET PO PRN ×5 (02:04→22:56)
[2018-02-23 06:29] LABS: MEAN CORPUSCULAR HEMOGLOBIN 32.9 pg (27.5-34.5); MEAN CORPUSCULAR HGB CONC 33.8 g/dL (33.2-36.2); MEAN CORPUSCULAR VOLUME 97.1 fL (81-97); PLATELET COUNT 370 x10^3/uL (130-400); RED BLOOD COUNT 3.85 x10^6/uL (4.38-5.82); RED CELL DISTRIBUTION WIDTH 12.9 % (9.4-14.8)
[2018-02-23 06:45] LABS: ALBUMIN 2.9 g/dL (3.4-5.0); ANION GAP 5 mmol/L (5-15); CALCIUM 8.8 mg/dL (8.5-10.1); CHLORIDE 107 mmol/L (98-107)
[2018-02-23 06:53] LABS: ALANINE AMINOTRANSFERASE 23 U/L (12-78); ALKALINE PHOSPHATASE 97 U/L (45-117); BILIRUBIN,TOTAL 0.4 mg/dL (0.2-1.0); CREATININE 0.78 mg/dL (0.7-1.3); TOTAL PROTEIN 5.8 g/dL (6.4-8.2)
[2018-02-23 07:00] LABS: BASOPHILS % (AUTO) 0 % (0-1); EOSINOPHILS % (AUTO) 0 % (1-7); LYMPHOCYTES # (AUTO) 0.42 x10^3/uL (1-3.4); LYMPHOCYTES % (AUTO) 2 % (22-44); MD SCAN; MONOCYTES # (AUTO) 0.31 x10^3/uL (0.2-0.8); MONOCYTES % (AUTO) 1 % (2-9); NEUTROPHILS # (AUTO) 21.83 x10^3/uL (1.8-6.8); NEUTROPHILS % (AUTO) 97 % (42-75)
[2018-02-23 07:33] VITALS: BP 135/81
[2018-02-23] MEDS: predniSONE 50MG TABLET PO SCH (08:28)
[2018-02-23] MEDS: ENOXAPARIN 40 MG/0.4 ML SQ SCH (08:28)
[2018-02-23] MEDS: ONDANSETRON 2MG/ML, 2ML IVPush PRN (14:09)
[2018-02-23 14:20] VITALS: BP 138/77
[2018-02-23] MEDS: DIPHENHYDRAMINE 50 MG/ML, 1ML IVPush SCH (17:34)
[2018-02-23] MEDS: FAMOTIDINE 20 MG/2 ML IVPush SCH (17:34)
[2018-02-23] MEDS: ONDANSETRON 12 MG in SODIUM CHLORIDE 0.9% 50 ML IVPB SCH (17:34)
[2018-02-23] MEDS: ETOPOSIDE IV SCH (18:43)
[2018-02-23] MEDS: DOXORUBICIN IV SCH (18:43)
[2018-02-23] MEDS: [UNRECOGNIZED DRUG - OTHER] IV SCH (18:43)
[2018-02-23] MEDS: VINCRISTINE IV SCH (18:43)
[2018-02-23 19:18] VITALS: BP 122/70
[2018-02-24] MEDS: OXYcodone IR 5MG TABLET PO PRN ×4 (04:10→20:02)
[2018-02-24 04:14] VITALS: BP 127/76
[2018-02-24 04:44] LABS: BASOPHILS # (AUTO) 0.04 x10^3/uL (0-0.1); BASOPHILS % (AUTO) 0 % (0-1); EOSINOPHILS % (AUTO) 0 % (1-7); LYMPHOCYTES # (AUTO) 0.53 x10^3/uL (1-3.4); LYMPHOCYTES % (AUTO) 4 % (22-44); MD NO; MEAN CORPUSCULAR HEMOGLOBIN 32.8 pg (27.5-34.5); MEAN CORPUSCULAR HGB CONC 33.8 g/dL (33.2-36.2); MEAN CORPUSCULAR VOLUME 96.8 fL (81-97); MEAN PLATELET VOLUME 6.7 fL (7.4-10.4); MONOCYTES # (AUTO) 0.78 x10^3/uL (0.2-0.8); MONOCYTES % (AUTO) 6 % (2-9); NEUTROPHILS # (AUTO) 12.72 x10^3/uL (1.8-6.8); NEUTROPHILS % (AUTO) 90 % (42-75); PLATELET COUNT 318 x10^3/uL (130-400); RED BLOOD COUNT 3.76 x10^6/uL (4.38-5.82); RED CELL DISTRIBUTION WIDTH 12.3 % (9.4-14.8)
[2018-02-24 04:50] LABS: ALBUMIN 2.7 g/dL (3.4-5.0); ANION GAP 6 mmol/L (5-15); CALCIUM 8.4 mg/dL (8.5-10.1); CHLORIDE 106 mmol/L (98-107)
[2018-02-24 04:53] LABS: ALANINE AMINOTRANSFERASE 25 U/L (12-78); ALKALINE PHOSPHATASE 87 U/L (45-117); BILIRUBIN,TOTAL 0.5 mg/dL (0.2-1.0); CREATININE 0.77 mg/dL (0.7-1.3); TOTAL PROTEIN 5.3 g/dL (6.4-8.2)
[2018-02-24 07:43] VITALS: BP 127/77
[2018-02-24] MEDS: ENOXAPARIN 40 MG/0.4 ML SQ SCH (09:17)
[2018-02-24] MEDS: predniSONE 50MG TABLET PO SCH (09:17)
[2018-02-24 12:39] VITALS: BP 161/78
[2018-02-24 16:00] VITALS: BP 140/79
[2018-02-24] MEDS: DIPHENHYDRAMINE 50 MG/ML, 1ML IVPush SCH (19:39)
[2018-02-24] MEDS: FAMOTIDINE 20 MG/2 ML IVPush SCH (19:39)
[2018-02-24 19:45] VITALS: BP 156/90
[2018-02-24] MEDS: ONDANSETRON 12 MG in SODIUM CHLORIDE 0.9% 50 ML IVPB SCH (20:02)
[2018-02-24] MEDS: [UNRECOGNIZED DRUG - OTHER] IV SCH (21:02)
[2018-02-24] MEDS: ETOPOSIDE IV SCH (21:02)
[2018-02-24] MEDS: DOXORUBICIN IV SCH (21:02)
[2018-02-24] MEDS: VINCRISTINE IV SCH (21:02)
[2018-02-25 05:30] VITALS: BP 149/78
[2018-02-25] MEDS: OXYcodone IR 5MG TABLET PO PRN ×3 (05:39→16:48)
[2018-02-25 06:18] LABS: ALANINE AMINOTRANSFERASE 89 U/L (12-78); ALBUMIN 2.8 g/dL (3.4-5.0); ANION GAP 4 mmol/L (5-15); CALCIUM 8.4 mg/dL (8.5-10.1); CHLORIDE 106 mmol/L (98-107); CREATININE 0.72 mg/dL (0.7-1.3)
[2018-02-25 06:20] LABS: ALKALINE PHOSPHATASE 87 U/L (45-117); BILIRUBIN,TOTAL 0.6 mg/dL (0.2-1.0); TOTAL PROTEIN 5.3 g/dL (6.4-8.2)
[2018-02-25 06:22] LABS: BASOPHILS % (AUTO) 0 % (0-1); EOSINOPHILS # (AUTO) 0.01 x10^3/uL (0-0.4); EOSINOPHILS % (AUTO) 0 % (1-7); LYMPHOCYTES # (AUTO) 0.72 x10^3/uL (1-3.4); LYMPHOCYTES % (AUTO) 8 % (22-44); MD NO; MEAN CORPUSCULAR HEMOGLOBIN 32.7 pg (27.5-34.5); MEAN CORPUSCULAR HGB CONC 34.3 g/dL (33.2-36.2); MEAN CORPUSCULAR VOLUME 95.3 fL (81-97); MEAN PLATELET VOLUME 6.7 fL (7.4-10.4); MONOCYTES # (AUTO) 0.13 x10^3/uL (0.2-0.8); MONOCYTES % (AUTO) 1 % (2-9); NEUTROPHILS % (AUTO) 91 % (42-75); PLATELET COUNT 306 x10^3/uL (130-400); RED BLOOD COUNT 3.88 x10^6/uL (4.38-5.82); RED CELL DISTRIBUTION WIDTH 12.8 % (9.4-14.8)
[2018-02-25] MEDS: ENOXAPARIN 40 MG/0.4 ML SQ SCH (09:27)
[2018-02-25] MEDS: ONDANSETRON 2MG/ML, 2ML IVPush PRN ×2 (10:18→16:48)
[2018-02-25 11:06] VITALS: BP 135/81
[2018-02-25 14:39] VITALS: BP 146/88
[2018-02-25] MEDS: ONDANSETRON 12 MG in SODIUM CHLORIDE 0.9% 50 ML IVPB SCH (20:42)
[2018-02-25 20:43] VITALS: BP 147/88
[2018-02-25] MEDS ORDERED: DIPHENHYDRAMINE 50 MG/ML, 1ML IVPush SCH (21:30)
[2018-02-25] MEDS ORDERED: FAMOTIDINE 20 MG/2 ML IVPush SCH (21:30)
[2018-02-25] MEDS ORDERED: predniSONE 50MG TABLET PO ONE (21:30)
[2018-02-25] MEDS ORDERED: SODIUM CHLORIDE 0.9% IV ONE (22:00)
[2018-02-25] MEDS ORDERED: CYCLOPHOSPHAMIDE IV ONE (22:00)
[2018-02-26] MEDS: OXYcodone IR 5MG TABLET PO PRN ×2 (04:42→08:23)
[2018-02-26] MEDS: ONDANSETRON 2MG/ML, 2ML IVPush PRN (04:42)
[2018-02-26 04:43] VITALS: BP 138/86
[2018-02-26 04:47] LABS: MEAN CORPUSCULAR HEMOGLOBIN 32.2 pg (27.5-34.5); MEAN CORPUSCULAR HGB CONC 33.5 g/dL (33.2-36.2); MEAN CORPUSCULAR VOLUME 96.1 fL (81-97); MEAN PLATELET VOLUME 6.5 fL (7.4-10.4); PLATELET COUNT 335 x10^3/uL (130-400); RED BLOOD COUNT 4.33 x10^6/uL (4.38-5.82); RED CELL DISTRIBUTION WIDTH 12.7 % (9.4-14.8)
[2018-02-26 05:02] LABS: ALANINE AMINOTRANSFERASE 71 U/L (12-78); ALBUMIN 3.1 g/dL (3.4-5.0); ANION GAP 5 mmol/L (5-15); CALCIUM 8.6 mg/dL (8.5-10.1); CHLORIDE 105 mmol/L (98-107); CREATININE 0.87 mg/dL (0.7-1.3)
[2018-02-26 05:06] LABS: ALKALINE PHOSPHATASE 96 U/L (45-117); BILIRUBIN,TOTAL 0.8 mg/dL (0.2-1.0); TOTAL PROTEIN 5.6 g/dL (6.4-8.2)
[2018-02-26 05:49] LABS: BASOPHILS % (AUTO) 0 % (0-1); EOSINOPHILS % (AUTO) 0 % (1-7); LYMPHOCYTES # (AUTO) 0.34 x10^3/uL (1-3.4); LYMPHOCYTES % (AUTO) 3 % (22-44); MD SCAN; MONOCYTES # (AUTO) 0.01 x10^3/uL (0.2-0.8); MONOCYTES % (AUTO) 0 % (2-9); NEUTROPHILS # (AUTO) 10.25 x10^3/uL (1.8-6.8); NEUTROPHILS % (AUTO) 97 % (42-75)
[2018-02-26 07:16] VITALS: BP 136/87
[2018-02-26] MEDS: ENOXAPARIN 40 MG/0.4 ML SQ SCH (08:04)
== END 2018-02-26 09:40 | disposition home or self-care (01) | DRG 847 ==
LOC: 3NW 13:35
PROVIDERS: ADMIT Internal Medicine Hematology & Oncology; ATTEND Internal Medicine Hematology & Oncology
PROC: 02HV33Z Insertion of Infusion Device into Superior Vena Cava, Percutaneous Approach (ICD-10-PCS; principal; 2018-02-20)
PROC: B5181ZA Fluoroscopy of Superior Vena Cava using Low Osmolar Contrast, Guidance (ICD-10-PCS; 2018-02-20)
PROC: 3E04305 Introduction of Other Antineoplastic into Central Vein, Percutaneous Approach (ICD-10-PCS; 2018-02-20)
DX: Z51.11 Encounter for antineoplastic chemotherapy (principal); C83.35 Diffuse large B-cell lymphoma, lymph nodes of inguinal region and lower limb; C85.95 Non-Hodgkin lymphoma, unspecified, lymph nodes of inguinal region and lower limb; J90 Pleural effusion, not elsewhere classified; D72.829 Elevated white blood cell count, unspecified
CPT/HCPCS: 36415; 77001; S0028; 36569; 76937; 80053; 83615; 84550; 85025; 86704; 86706; 86708; 86803; 87340; 93306; J1100; J1453; J1650; J2405; J3490; J9000; J9070; J9181; C1751; J1200; J7030; J7050; J7512; J9310; J9370

== ENCOUNTER 2018-03-14 10:03 | Inpatient (IN) | payer OTHER ==
[~2018-03-14] VITALS: Ht 182.9 cm; Wt 92.4 kg
[2018-03-14 09:30] VITALS: BP 154/99
[2018-03-14 11:23] LABS: BASOPHILS # (AUTO) 0.02 x10^3/uL (0-0.1); BASOPHILS % (AUTO) 0 % (0-1); EOSINOPHILS # (AUTO) 0.04 x10^3/uL (0-0.4); EOSINOPHILS % (AUTO) 0 % (1-7); LYMPHOCYTES # (AUTO) 0.72 x10^3/uL (1-3.4); LYMPHOCYTES % (AUTO) 5 % (22-44); MD NO; MEAN CORPUSCULAR HEMOGLOBIN 32.2 pg (27.5-34.5); MEAN CORPUSCULAR HGB CONC 34.1 g/dL (33.2-36.2); MEAN CORPUSCULAR VOLUME 94.2 fL (81-97); MEAN PLATELET VOLUME 6.4 fL (7.4-10.4); MONOCYTES # (AUTO) 1.23 x10^3/uL (0.2-0.8); MONOCYTES % (AUTO) 8 % (2-9); NEUTROPHILS # (AUTO) 12.59 x10^3/uL (1.8-6.8); NEUTROPHILS % (AUTO) 86 % (42-75); PLATELET COUNT 458 x10^3/uL (130-400); RED BLOOD COUNT 3.68 x10^6/uL (4.38-5.82); RED CELL DISTRIBUTION WIDTH 12.2 % (9.4-14.8)
[2018-03-14 11:30] VITALS: BP 154/99
[2018-03-14 11:30] LABS: ALANINE AMINOTRANSFERASE 22 U/L (12-78); ALBUMIN 3.1 g/dL (3.4-5.0); ANION GAP 6 mmol/L (5-15); CALCIUM 8.8 mg/dL (8.5-10.1); CHLORIDE 107 mmol/L (98-107); CREATININE 0.87 mg/dL (0.7-1.3)
[2018-03-14 11:33] LABS: ALKALINE PHOSPHATASE 147 U/L (45-117); BILIRUBIN,TOTAL 0.2 mg/dL (0.2-1.0)
[2018-03-14] MEDS: predniSONE 50MG TABLET PO SCH (14:53)
[2018-03-14] MEDS ORDERED: FAMOTIDINE 20 MG/2 ML IVPush ONE (15:00)
[2018-03-14] MEDS ORDERED: DIPHENHYDRAMINE 50 MG/ML, 1ML IVPush ONE (15:00)
[2018-03-14] MEDS ORDERED: FOSAPREPITANT 150 MG in SODIUM CHLORIDE 0.9% 145 ML IV ONE (15:00)
[2018-03-14] MEDS ORDERED: ACETAMINOPHEN 325 MG TABLET PO ONE (15:00)
[2018-03-14] MEDS ORDERED: RITUXIMAB IV ONE (15:30)
[2018-03-14] MEDS ORDERED: SODIUM CHLORIDE 0.9% IV ONE (15:30)
[2018-03-14 19:20] VITALS: BP 137/88
[2018-03-15 04:06] VITALS: BP 127/72
[2018-03-15] MEDS ORDERED: DIPHENHYDRAMINE 50 MG/ML, 1ML IVPush SCH ×2 (07:30→12:30)
[2018-03-15] MEDS ORDERED: FAMOTIDINE 20 MG/2 ML IVPush SCH ×2 (07:30→12:30)
[2018-03-15] MEDS ORDERED: ONDANSETRON 8 MG in SODIUM CHLORIDE 0.9% 50 ML IVPB SCH ×2 (07:30→12:30)
[2018-03-15] MEDS ORDERED: [UNRECOGNIZED DRUG - OTHER] IV SCH ×2 (08:00→13:00)
[2018-03-15] MEDS ORDERED: ETOPOSIDE IV SCH ×2 (08:00→13:00)
[2018-03-15] MEDS ORDERED: VINCRISTINE IV SCH ×2 (08:00→13:00)
[2018-03-15] MEDS ORDERED: DOXORUBICIN IV SCH ×2 (08:00→13:00)
[2018-03-15 08:29] VITALS: BP 141/88
[2018-03-15] MEDS ORDERED: FOSAPREPITANT 150 MG in SODIUM CHLORIDE 0.9% 145 ML IV ONE ×2 (09:00→12:30)
[2018-03-15] MEDS: ONDANSETRON 8 MG in SODIUM CHLORIDE 0.9% 50 ML IVPB SCH (09:30)
[2018-03-15] MEDS: DIPHENHYDRAMINE 50 MG/ML, 1ML IVPush SCH (09:47)
[2018-03-15] MEDS: FAMOTIDINE 20 MG/2 ML IVPush SCH (09:47)
[2018-03-15] MEDS: [UNRECOGNIZED DRUG - OTHER] IV SCH (10:32)
[2018-03-15] MEDS: DOXORUBICIN IV SCH (10:32)
[2018-03-15] MEDS: VINCRISTINE IV SCH (10:32)
[2018-03-15] MEDS: ETOPOSIDE IV SCH (10:32)
[2018-03-15 14:39] VITALS: BP 110/61
[2018-03-15] MEDS: predniSONE 50MG TABLET PO SCH (15:08)
[2018-03-15 20:16] VITALS: BP 122/77
[2018-03-16 06:45] LABS: ANION GAP 10 mmol/L (5-15); CHLORIDE 107 mmol/L (98-107)
[2018-03-16 06:48] LABS: ALANINE AMINOTRANSFERASE 22 U/L (12-78); ALKALINE PHOSPHATASE 159 U/L (45-117); BILIRUBIN,TOTAL 0.3 mg/dL (0.2-1.0); CREATININE 0.92 mg/dL (0.7-1.3)
[2018-03-16 06:49] LABS: MEAN CORPUSCULAR HEMOGLOBIN 32.1 pg (27.5-34.5); MEAN CORPUSCULAR HGB CONC 33.9 g/dL (33.2-36.2); MEAN CORPUSCULAR VOLUME 94.6 fL (81-97); MEAN PLATELET VOLUME 6.9 fL (7.4-10.4); PLATELET COUNT 411 x10^3/uL (130-400); RED BLOOD COUNT 3.52 x10^6/uL (4.38-5.82); RED CELL DISTRIBUTION WIDTH 12.9 % (9.4-14.8)
[2018-03-16 07:24] LABS: BASOPHILS # (AUTO) 0.03 x10^3/uL (0-0.1); BASOPHILS % (AUTO) 0 % (0-1); EOSINOPHILS # (AUTO) 0.01 x10^3/uL (0-0.4); EOSINOPHILS % (AUTO) 0 % (1-7); LYMPHOCYTES # (AUTO) 0.57 x10^3/uL (1-3.4); LYMPHOCYTES % (AUTO) 3 % (22-44); MD SCAN; MONOCYTES # (AUTO) 0.35 x10^3/uL (0.2-0.8); MONOCYTES % (AUTO) 2 % (2-9); NEUTROPHILS # (AUTO) 20.88 x10^3/uL (1.8-6.8); NEUTROPHILS % (AUTO) 96 % (42-75)
[2018-03-16 08:56] VITALS: BP 137/82
[2018-03-16] MEDS: DIPHENHYDRAMINE 50 MG/ML, 1ML IVPush SCH (10:27)
[2018-03-16] MEDS: ENOXAPARIN 40 MG/0.4 ML SQ SCH (10:27)
[2018-03-16] MEDS: FAMOTIDINE 20 MG/2 ML IVPush SCH (10:27)
[2018-03-16] MEDS: ONDANSETRON 8 MG in SODIUM CHLORIDE 0.9% 50 ML IVPB SCH (10:28)
[2018-03-16] MEDS: ETOPOSIDE IV SCH (11:16)
[2018-03-16] MEDS: [UNRECOGNIZED DRUG - OTHER] IV SCH (11:16)
[2018-03-16] MEDS: DOXORUBICIN IV SCH (11:16)
[2018-03-16] MEDS: VINCRISTINE IV SCH (11:16)
[2018-03-16 14:47] VITALS: BP 128/78
[2018-03-16] MEDS: predniSONE 50MG TABLET PO SCH (15:32)
[2018-03-16 20:29] VITALS: BP 128/81
[2018-03-17 05:29] VITALS: BP 122/79
[2018-03-17 06:10] LABS: MEAN CORPUSCULAR HEMOGLOBIN 32.8 pg (27.5-34.5); MEAN CORPUSCULAR HGB CONC 34.5 g/dL (33.2-36.2); MEAN CORPUSCULAR VOLUME 95.2 fL (81-97); MEAN PLATELET VOLUME 6.7 fL (7.4-10.4); PLATELET COUNT 426 x10^3/uL (130-400); RED BLOOD COUNT 3.51 x10^6/uL (4.38-5.82); RED CELL DISTRIBUTION WIDTH 12.8 % (9.4-14.8)
[2018-03-17 06:23] LABS: ALBUMIN 3.1 g/dL (3.4-5.0); ANION GAP 9 mmol/L (5-15); CALCIUM 8.7 mg/dL (8.5-10.1); CHLORIDE 106 mmol/L (98-107)
[2018-03-17 06:26] LABS: ALANINE AMINOTRANSFERASE 25 U/L (12-78); ALKALINE PHOSPHATASE 139 U/L (45-117); BILIRUBIN,TOTAL 0.3 mg/dL (0.2-1.0); CREATININE 0.85 mg/dL (0.7-1.3); TOTAL PROTEIN 5.9 g/dL (6.4-8.2)
[2018-03-17 06:30] LABS: BASOPHILS % (AUTO) 0 % (0-1); EOSINOPHILS % (AUTO) 0 % (1-7); LYMPHOCYTES # (AUTO) 0.39 x10^3/uL (1-3.4); LYMPHOCYTES % (AUTO) 2 % (22-44); MD SCAN; MONOCYTES % (AUTO) 2 % (2-9); NEUTROPHILS # (AUTO) 15.88 x10^3/uL (1.8-6.8); NEUTROPHILS % (AUTO) 95 % (42-75)
[2018-03-17] MEDS: ONDANSETRON 8 MG in SODIUM CHLORIDE 0.9% 50 ML IVPB SCH (11:01)
[2018-03-17] MEDS: DIPHENHYDRAMINE 50 MG/ML, 1ML IVPush SCH (11:01)
[2018-03-17] MEDS: FAMOTIDINE 20 MG/2 ML IVPush SCH (11:01)
[2018-03-17] MEDS: ENOXAPARIN 40 MG/0.4 ML SQ SCH (11:02)
[2018-03-17] MEDS: DOXORUBICIN IV SCH (11:33)
[2018-03-17] MEDS: [UNRECOGNIZED DRUG - OTHER] IV SCH (11:33)
[2018-03-17] MEDS: ETOPOSIDE IV SCH (11:33)
[2018-03-17] MEDS: VINCRISTINE IV SCH (11:33)
[2018-03-17 12:38] VITALS: BP 133/75
[2018-03-17] MEDS: predniSONE 50MG TABLET PO SCH (14:50)
[2018-03-17 19:47] VITALS: BP 131/79
[2018-03-18 05:03] VITALS: BP 148/88
[2018-03-18 05:43] LABS: MEAN CORPUSCULAR HEMOGLOBIN 32.4 pg (27.5-34.5); MEAN CORPUSCULAR HGB CONC 34.4 g/dL (33.2-36.2); MEAN CORPUSCULAR VOLUME 94.3 fL (81-97); MEAN PLATELET VOLUME 6.6 fL (7.4-10.4); PLATELET COUNT 411 x10^3/uL (130-400); RED BLOOD COUNT 3.55 x10^6/uL (4.38-5.82); RED CELL DISTRIBUTION WIDTH 12.8 % (9.4-14.8)
[2018-03-18 05:48] LABS: CHLORIDE 106 mmol/L (98-107)
[2018-03-18 05:59] LABS: ALANINE AMINOTRANSFERASE 31 U/L (12-78); ALBUMIN 2.9 g/dL (3.4-5.0); ALKALINE PHOSPHATASE 134 U/L (45-117); ANION GAP 6 mmol/L (5-15); BILIRUBIN,TOTAL 0.6 mg/dL (0.2-1.0); CALCIUM 8.8 mg/dL (8.5-10.1); CREATININE 0.82 mg/dL (0.7-1.3); TOTAL PROTEIN 5.7 g/dL (6.4-8.2)
[2018-03-18 06:38] LABS: BASOPHILS # (AUTO) 0.01 x10^3/uL (0-0.1); BASOPHILS % (AUTO) 0 % (0-1); EOSINOPHILS % (AUTO) 0 % (1-7); LYMPHOCYTES # (AUTO) 0.43 x10^3/uL (1-3.4); LYMPHOCYTES % (AUTO) 3 % (22-44); MD SCAN; MONOCYTES # (AUTO) 0.49 x10^3/uL (0.2-0.8); MONOCYTES % (AUTO) 3 % (2-9); NEUTROPHILS # (AUTO) 13.19 x10^3/uL (1.8-6.8); NEUTROPHILS % (AUTO) 93 % (42-75)
[2018-03-18 07:04] VITALS: BP 147/91
[2018-03-18] MEDS: FAMOTIDINE 20 MG/2 ML IVPush SCH (09:10)
[2018-03-18] MEDS: DIPHENHYDRAMINE 50 MG/ML, 1ML IVPush SCH (09:10)
[2018-03-18] MEDS: ONDANSETRON 8 MG in SODIUM CHLORIDE 0.9% 50 ML IVPB SCH (09:11)
[2018-03-18] MEDS: ENOXAPARIN 40 MG/0.4 ML SQ SCH (09:11)
[2018-03-18] MEDS: ETOPOSIDE IV SCH (11:36)
[2018-03-18] MEDS: VINCRISTINE IV SCH (11:36)
[2018-03-18] MEDS: DOXORUBICIN IV SCH (11:36)
[2018-03-18] MEDS: [UNRECOGNIZED DRUG - OTHER] IV SCH (11:36)
[2018-03-18 13:36] VITALS: BP 125/73
[2018-03-18] MEDS: predniSONE 50MG TABLET PO SCH (15:03)
[2018-03-18 19:15] VITALS: BP 129/80
[2018-03-19 02:56] VITALS: BP 149/90
[2018-03-19 05:55] LABS: BASOPHILS # (AUTO) 0.02 x10^3/uL (0-0.1); BASOPHILS % (AUTO) 0 % (0-1); EOSINOPHILS % (AUTO) 0 % (1-7); LYMPHOCYTES # (AUTO) 0.41 x10^3/uL (1-3.4); LYMPHOCYTES % (AUTO) 4 % (22-44); MD NO; MEAN CORPUSCULAR HEMOGLOBIN 31.9 pg (27.5-34.5); MEAN CORPUSCULAR HGB CONC 33.8 g/dL (33.2-36.2); MEAN CORPUSCULAR VOLUME 94.3 fL (81-97); MEAN PLATELET VOLUME 6.8 fL (7.4-10.4); MONOCYTES # (AUTO) 0.34 x10^3/uL (0.2-0.8); MONOCYTES % (AUTO) 3 % (2-9); NEUTROPHILS # (AUTO) 9.81 x10^3/uL (1.8-6.8); NEUTROPHILS % (AUTO) 93 % (42-75); PLATELET COUNT 408 x10^3/uL (130-400); RED BLOOD COUNT 3.54 x10^6/uL (4.38-5.82); RED CELL DISTRIBUTION WIDTH 12.9 % (9.4-14.8)
[2018-03-19 05:56] LABS: ALANINE AMINOTRANSFERASE 31 U/L (12-78); ANION GAP 7 mmol/L (5-15); CALCIUM 8.9 mg/dL (8.5-10.1); CHLORIDE 105 mmol/L (98-107); CREATININE 1.02 mg/dL (0.7-1.3)
[2018-03-19 05:58] LABS: ALKALINE PHOSPHATASE 123 U/L (45-117); BILIRUBIN,TOTAL 0.5 mg/dL (0.2-1.0); TOTAL PROTEIN 5.7 g/dL (6.4-8.2)
[2018-03-19 07:12] VITALS: BP 141/76
[2018-03-19] MEDS ORDERED: SODIUM CHLORIDE 0.9%, 500ML IVBOLUS ONE (09:30)
[2018-03-19] MEDS: ENOXAPARIN 40 MG/0.4 ML SQ SCH (09:57)
[2018-03-19] MEDS: DIPHENHYDRAMINE 50 MG/ML, 1ML IVPush SCH (09:57)
[2018-03-19] MEDS: FAMOTIDINE 20 MG/2 ML IVPush SCH (09:57)
[2018-03-19] MEDS: ONDANSETRON 8 MG in SODIUM CHLORIDE 0.9% 50 ML IVPB SCH (10:18)
[2018-03-19] MEDS ORDERED: CYCLOPHOSPHAMIDE IV ONE (13:00)
[2018-03-19] MEDS ORDERED: SODIUM CHLORIDE 0.9% IV ONE (13:00)
[2018-03-19 15:08] VITALS: BP 132/76
== END 2018-03-19 16:10 | disposition home or self-care (01) | DRG 847 ==
LOC: 3NW 10:03
PROVIDERS: ADMIT Internal Medicine Hematology & Oncology; ATTEND Internal Medicine Hematology & Oncology
PROC: 02HV33Z Insertion of Infusion Device into Superior Vena Cava, Percutaneous Approach (ICD-10-PCS; principal; 2018-03-14)
PROC: B548ZZA Ultrasonography of Superior Vena Cava, Guidance (ICD-10-PCS; 2018-03-14)
DX: Z51.11 Encounter for antineoplastic chemotherapy (principal); C85.90 Non-Hodgkin lymphoma, unspecified, unspecified site; Z94.84 Stem cells transplant status; D80.1 Nonfamilial hypogammaglobulinemia; Z87.891 Personal history of nicotine dependence; D75.9 Disease of blood and blood-forming organs, unspecified; E11.9 Type 2 diabetes mellitus without complications; K21.9 Gastro-esophageal reflux disease without esophagitis; K59.00 Constipation, unspecified; R53.82 Chronic fatigue, unspecified; F41.9 Anxiety disorder, unspecified; G62.9 Polyneuropathy, unspecified; Z87.01 Personal history of pneumonia (recurrent)
CPT/HCPCS: 36415; 77001; S0028; 36569; 76937; 80053; 83615; 84550; 85025; G0378; J1453; J1650; J2405; J9000; J9070; J9181; C1751; J1200; J7030; J7040; J7050; J7512; J9310; J9370

== ENCOUNTER 2018-03-30 07:52 | Inpatient (IN) | payer OTHER ==
[~2018-03-30] VITALS: Ht 182.9 cm; Wt 92.0 kg
[~2018-03-30 07:52] MED LIST changes: -CEFAZOLIN PMX 1GM/50ML 50 ML IV ONE; -CEFD300C37 PO; -DOXY100T PO; -FENTANYL PF 100 MCG/2ML ONE; -FLUMAZENIL 0.1 MG/1 ML, 5ML ONE; -GUAI-110 PO; -MIDAZOLAM 1 MG/ML, 5ML ONE; -NALOXONE 1 MG/ML, 2ML ONE; -SODIUM CHLORIDE 0.9% 1,000 ML IV SCH
[2018-03-30] MEDS ORDERED: SODIUM CHLORIDE 0.9% 1,000 ML IV ONE (08:17)
[2018-03-30] MEDS ORDERED: SODIUM CHLORIDE 0.9% 1,000ML IVBOLUS ONE (08:30)
[2018-03-30] MEDS ORDERED: PROCHLORPERAZINE 5 MG/ML, 2ML IVPush ONE (08:30)
[2018-03-30] MEDS ORDERED: PROCHLORPERAZINE 5 MG/ML, 2ML ONE (08:54)
[2018-03-30 08:57] LABS: BASOPHILS % (AUTO) 0 % (0-1); EOSINOPHILS # (AUTO) 0.03 x10^3/uL (0-0.4); EOSINOPHILS % (AUTO) 0 % (1-7); LYMPHOCYTES # (AUTO) 0.23 x10^3/uL (1-3.4); LYMPHOCYTES % (AUTO) 2 % (22-44); MD NO; MEAN CORPUSCULAR HEMOGLOBIN 31.5 pg (27.5-34.5); MEAN CORPUSCULAR HGB CONC 34.3 g/dL (33.2-36.2); MEAN CORPUSCULAR VOLUME 92.1 fL (81-97); MEAN PLATELET VOLUME 7.1 fL (7.4-10.4); MONOCYTES # (AUTO) 1.13 x10^3/uL (0.2-0.8); MONOCYTES % (AUTO) 10 % (2-9); NEUTROPHILS # (AUTO) 10.14 x10^3/uL (1.8-6.8); NEUTROPHILS % (AUTO) 88 % (42-75); PLATELET COUNT 279 x10^3/uL (130-400); RED BLOOD COUNT 3.43 x10^6/uL (4.38-5.82); RED CELL DISTRIBUTION WIDTH 13.8 % (9.4-14.8)
[2018-03-30 09:13] LABS: ALANINE AMINOTRANSFERASE 25 U/L (12-78); ALBUMIN 3.3 g/dL (3.4-5.0); ANION GAP 11 mmol/L (5-15); CALCIUM 9.1 mg/dL (8.5-10.1); CHLORIDE 103 mmol/L (98-107); CREATININE 0.92 mg/dL (0.7-1.3)
[2018-03-30 09:15] LABS: ALKALINE PHOSPHATASE 156 U/L (45-117); BILIRUBIN,TOTAL 0.4 mg/dL (0.2-1.0); TOTAL PROTEIN 6.5 g/dL (6.4-8.2)
[2018-03-30] MEDS ORDERED: VANCOMYCIN PER PHARMACY MC PRN ×2 (10:00→13:30)
[2018-03-30] MEDS ORDERED: VANCOMYCIN 1,800 MG in SODIUM CHLORIDE 0.9% 250 ML IV ONE (10:00)
[2018-03-30] MEDS ORDERED: PHARMACOKINETIC CONSULTATION MC ONE (10:00)
[2018-03-30] MEDS: PIPERACILLIN/TAZO/PMX 4.5GM 100 ML IV SCH ×2 (10:00→17:33)
[2018-03-30] MEDS ORDERED: PIPERACILLIN/TAZO/PMX 3.375GM 50 ML ONE (10:04)
[2018-03-30 10:12] LABS: MICROSCOPIC INDICATED
[2018-03-30 10:22] LABS: CULTURE INDICATED? NO
[2018-03-30] MEDS: SODIUM CHLORIDE 0.9% 1,000 ML IV SCH ×2 (10:26→17:34)
[2018-03-30] MEDS ORDERED: POLYETHYLENE GLYCOL 17 GM PACKET PO PRN (10:30)
[2018-03-30] MEDS ORDERED: LABETALOL 5MG/ML, 20ML IVPush PRN (10:30)
[2018-03-30] MEDS ORDERED: ONDANSETRON ODT 4 MG PO PRN (10:30)
[2018-03-30 10:54] LABS: FREE T4 (FREE THYROXINE) 1.22 ng/dL (0.76-1.46)
[2018-03-30] MEDS ORDERED: PHARMACOKINETIC MONITORING MC PRN (11:00)
[2018-03-30 13:12] VITALS: BP 101/65
[2018-03-30] MEDS ORDERED: VANCOMYCIN 1,800 MG in SODIUM CHLORIDE 0.9% 250 ML IV SCH (13:30)
[2018-03-30] MEDS ORDERED: CEFTRIAXONE 2 GM in SODIUM CHLORIDE 0.9% 50 ML IV SCH (18:30)
[2018-03-30 18:31] VITALS: BP 108/64
[2018-03-30] MEDS: PROCHLORPERAZINE 10MG TABLET PO PRN (20:00)
[2018-03-30] MEDS ORDERED: ACETAMINOPHEN 325 MG TABLET PO PRN (20:00)
[2018-03-30] MEDS ORDERED: PROCHLORPERAZINE 10MG TABLET PO PRN (20:30)
[2018-03-30] MEDS: DOXYCYCLINE 100MG TABLET PO SCH (21:43)
[2018-03-30] MEDS: CEFTRIAXONE 2 GM in SODIUM CHLORIDE 0.9% 50 ML IV SCH (21:43)
[2018-03-30] MEDS: FAMOTIDINE 20 MG/2 ML IVPush SCH (21:43)
[2018-03-31] MEDS ORDERED: VANCOMYCIN 1,800 MG in SODIUM CHLORIDE 0.9% 250 ML IV SCH (00:30)
[2018-03-31] MEDS: SODIUM CHLORIDE 0.9% 1,000 ML IV SCH ×3 (02:48→20:27)
[2018-03-31 02:55] VITALS: BP 104/64
[2018-03-31 06:23] LABS: BASOPHILS # (AUTO) 0.01 x10^3/uL (0-0.1); BASOPHILS % (AUTO) 0 % (0-1); EOSINOPHILS # (AUTO) 0.04 x10^3/uL (0-0.4); EOSINOPHILS % (AUTO) 0 % (1-7); LYMPHOCYTES # (AUTO) 0.42 x10^3/uL (1-3.4); LYMPHOCYTES % (AUTO) 4 % (22-44); MD NO; MEAN CORPUSCULAR HEMOGLOBIN 32.5 pg (27.5-34.5); MEAN CORPUSCULAR HGB CONC 34.8 g/dL (33.2-36.2); MEAN CORPUSCULAR VOLUME 93.3 fL (81-97); MEAN PLATELET VOLUME 7.2 fL (7.4-10.4); MONOCYTES # (AUTO) 1.16 x10^3/uL (0.2-0.8); MONOCYTES % (AUTO) 12 % (2-9); NEUTROPHILS # (AUTO) 7.95 x10^3/uL (1.8-6.8); NEUTROPHILS % (AUTO) 83 % (42-75); PLATELET COUNT 254 x10^3/uL (130-400); RED BLOOD COUNT 2.65 x10^6/uL (4.38-5.82); RED CELL DISTRIBUTION WIDTH 14.1 % (9.4-14.8)
[2018-03-31 06:25] LABS: CHLORIDE 110 mmol/L (98-107)
[2018-03-31 06:47] LABS: ALANINE AMINOTRANSFERASE 18 U/L (12-78); ALBUMIN 2.5 g/dL (3.4-5.0); ALKALINE PHOSPHATASE 111 U/L (45-117); ANION GAP 10 mmol/L (5-15); BILIRUBIN,TOTAL 0.2 mg/dL (0.2-1.0); CREATININE 0.71 mg/dL (0.7-1.3); THYROID STIMULATING HORMONE 0.702 mIU/L (0.358-3.740); TOTAL PROTEIN 5.2 g/dL (6.4-8.2)
[2018-03-31 07:30] VITALS: BP 113/70
[2018-03-31] MEDS ORDERED: POTASSIUM CHLORIDE 20 MEQ TAB.ER.PRT PO ONE ×2 (07:30→11:30)
[2018-03-31] MEDS: NEUTRA PHOS K 250 MG TABLET PO SCH ×2 (07:56→20:26)
[2018-03-31] MEDS: DOXYCYCLINE 100MG TABLET PO SCH ×2 (07:57→20:26)
[2018-03-31] MEDS: FAMOTIDINE 20 MG/2 ML IVPush SCH (07:57)
[2018-03-31] MEDS: ASPIRIN 81 MG TABLET EC PO SCH (07:57)
[2018-03-31] MEDS: SENNA/DOCUSATE TABLET PO SCH (07:59)
[2018-03-31] MEDS ORDERED: DEXTROSE 50%, 50ML SYRINGE IVPush PRN (12:30)
[2018-03-31] MEDS ORDERED: GLUCAGON 1 MG IM PRN (12:30)
[2018-03-31] MEDS ORDERED: DEXTROSE 4 GM TAB.CHEW PO PRN (12:30)
[2018-03-31 13:30] VITALS: BP 133/77
[2018-03-31 19:57] VITALS: BP 107/62
[2018-03-31] MEDS: CEFTRIAXONE 2 GM in SODIUM CHLORIDE 0.9% 50 ML IV SCH (20:25)
[2018-03-31] MEDS: FAMOTIDINE 20 MG TABLET PO SCH (20:26)
[2018-03-31] MEDS: SODIUM CHLORIDE FLUSH 10ML SYR IVF SCH (20:27)
[2018-04-01 01:09] VITALS: BP 102/67
[2018-04-01] MEDS: SODIUM CHLORIDE 0.9% 1,000 ML IV SCH (02:26)
[2018-04-01 04:41] LABS: ALBUMIN 2.5 g/dL (3.4-5.0); ANION GAP 7 mmol/L (5-15); CALCIUM 8.4 mg/dL (8.5-10.1); CHLORIDE 110 mmol/L (98-107)
[2018-04-01 04:44] LABS: MEAN CORPUSCULAR HEMOGLOBIN 32.6 pg (27.5-34.5); MEAN CORPUSCULAR HGB CONC 34.8 g/dL (33.2-36.2); MEAN CORPUSCULAR VOLUME 93.8 fL (81-97); MEAN PLATELET VOLUME 7.1 fL (7.4-10.4); PLATELET COUNT 312 x10^3/uL (130-400); RED BLOOD COUNT 2.72 x10^6/uL (4.38-5.82); RED CELL DISTRIBUTION WIDTH 13.8 % (9.4-14.8)
[2018-04-01 05:57] LABS: BASOPHILS % (AUTO) 0 % (0-1); EOSINOPHILS % (AUTO) 1 % (1-7); LYMPHOCYTES # (AUTO) 0.49 x10^3/uL (1-3.4); LYMPHOCYTES % (AUTO) 5 % (22-44); MD SCAN; MONOCYTES # (AUTO) 1.25 x10^3/uL (0.2-0.8); MONOCYTES % (AUTO) 11 % (2-9); NEUTROPHILS # (AUTO) 9.21 x10^3/uL (1.8-6.8); NEUTROPHILS % (AUTO) 83 % (42-75)
[2018-04-01] MEDS: PROCHLORPERAZINE 10MG TABLET PO PRN (06:21)
[2018-04-01 07:42] VITALS: BP 122/75
[2018-04-01] MEDS: SENNA/DOCUSATE TABLET PO SCH (09:00)
[2018-04-01] MEDS ORDERED: DOXY100T PO (09:40)
[2018-04-01] MEDS ORDERED: CEFD300C37 PO (09:40)
[2018-04-01] MEDS ORDERED: GUAI-110 PO (09:42)
[2018-04-01] MEDS: FAMOTIDINE 20 MG TABLET PO SCH (09:57)
[2018-04-01] MEDS: ASPIRIN 81 MG TABLET EC PO SCH (09:57)
[2018-04-01] MEDS: NEUTRA PHOS K 250 MG TABLET PO SCH (09:57)
[2018-04-01] MEDS: DOXYCYCLINE 100MG TABLET PO SCH (09:57)
[2018-04-01] MEDS: SODIUM CHLORIDE FLUSH 10ML SYR IVF SCH (09:58)
[2018-04-01] MEDS ORDERED: CEFTRIAXONE 2 GM in SODIUM CHLORIDE 0.9% 50 ML IV SCH ×2 (10:00→13:00)
== END 2018-04-01 11:16 | disposition home or self-care (01) | DRG 871 ==
LOC: ED 09:57 → EDIP 09:58 → ED 10:19 → 3NW 10:37
PROVIDERS: ADMIT Internal Medicine; ATTEND Internal Medicine
DX: A41.9 Sepsis, unspecified organism (principal); J18.0 Bronchopneumonia, unspecified organism; J90 Pleural effusion, not elsewhere classified; Z94.84 Stem cells transplant status; D64.9 Anemia, unspecified; E78.5 Hyperlipidemia, unspecified; E83.39 Other disorders of phosphorus metabolism; E87.6 Hypokalemia; F41.9 Anxiety disorder, unspecified; G62.9 Polyneuropathy, unspecified; I10 Essential (primary) hypertension; Z82.49 Family history of ischemic heart disease and other diseases of the circulatory system; Z85.028 Personal history of other malignant neoplasm of stomach; Z85.72 Personal history of non-Hodgkin lymphomas; Z92.21 Personal history of antineoplastic chemotherapy; E11.65 Type 2 diabetes mellitus with hyperglycemia
CPT/HCPCS: 36415; 99285; Q0164; S0028; 71046; 80048; 80053; 81001; 82040; 83605; 83690; 83735; 84100; 84439; 84443; 85025; 87040; 87070; 87205; 96361; 96374; G0378; J0696; J2543; J3370; J0780; J7030; J7050

== ENCOUNTER → 2018-03-30 | Day surgery (SDC) | payer OTHER ==
[~2018-03-30] VITALS: Ht 182.9 cm; Wt 91.2 kg
[~2018-03-30] MED LIST changes: +ASPI-496 PO; +CEFAZOLIN PMX 1GM/50ML 50 ML IV ONE; +CEFD300C37 PO; +DOXY100T PO; +FENTANYL PF 100 MCG/2ML ONE; +FLUMAZENIL 0.1 MG/1 ML, 5ML ONE; +GUAI-110 PO; +IBUP200T49 PO; +MIDAZOLAM 1 MG/ML, 5ML ONE; +NALOXONE 1 MG/ML, 2ML ONE; +PROC10TA78 PO; +SODIUM CHLORIDE 0.9% 1,000 ML IV SCH
[2018-03-30 07:17] VITALS: BP 115/80
== END | disposition home or self-care (01) ==
LOC: OUT 06:20
PROVIDERS: ATTEND Internal Medicine Hematology & Oncology
DX: Z02.9 Encounter for administrative examinations, unspecified (principal)
CPT/HCPCS: J2250; J3010; J2310

== ENCOUNTER 2018-04-10 08:00 | Inpatient (IN) | payer OTHER ==
[~2018-04-10] VITALS: Ht 182.9 cm; Wt 94.0 kg
[~2018-04-10 08:00] MED LIST changes: +CEFD300C37 PO; +DOXY100T PO; +GUAI-110 PO
[2018-04-10] MEDS ORDERED: ACETAMINOPHEN 325 MG TABLET PO ONE (10:00)
[2018-04-10] MEDS ORDERED: PLEASE ENTER HEIGHT AND WEIGHT MC SCH (10:03)
[2018-04-10 10:53] VITALS: BP 125/84
[2018-04-10 11:52] LABS: ALBUMIN 3.1 g/dL (3.4-5.0); ANION GAP 7 mmol/L (5-15); CALCIUM 8.7 mg/dL (8.5-10.1); CHLORIDE 105 mmol/L (98-107)
[2018-04-10 11:54] LABS: ALANINE AMINOTRANSFERASE 16 U/L (12-78); ALKALINE PHOSPHATASE 91 U/L (45-117); BILIRUBIN,TOTAL 0.2 mg/dL (0.2-1.0); CREATININE 0.89 mg/dL (0.7-1.3); TOTAL PROTEIN 6.5 g/dL (6.4-8.2)
[2018-04-10 12:12] LABS: MEAN CORPUSCULAR HEMOGLOBIN 32.5 pg (27.5-34.5); MEAN CORPUSCULAR HGB CONC 34.1 g/dL (33.2-36.2); MEAN CORPUSCULAR VOLUME 95.3 fL (81-97); MEAN PLATELET VOLUME 6.8 fL (7.4-10.4); PLATELET COUNT 426 x10^3/uL (130-400); RED BLOOD COUNT 3.03 x10^6/uL (4.38-5.82); RED CELL DISTRIBUTION WIDTH 16.8 % (9.4-14.8)
[2018-04-10 12:13] LABS: MD YES
[2018-04-10 12:15] LABS: <PLATELET ESTIMATE> INCREASED; <PLT MORPHOLOGY> NORMAL PLT MORPH; ANISOCYTOSIS 1+; BANDS%(MANUAL) 4 % (0-7); LYMPH#(MANUAL) 0.54 x10^3/uL (1-3.4); LYMPHS% (MANUAL) 11 % (22-44); METAMYELOCYTES# (MANUAL) 0.05 x10^3/uL (0-0); METAMYELOCYTES% (MANUAL) 1 % (0-1); MONOS#(MANUAL) 0.64 x10^3/uL (0.3-2.7); MONOS% (MANUAL) 13 % (2-9); POLYCHROMASIA 1+; SEG#(MANUAL) 3.48 x10^3/uL (1.8-6.8); SEGS% (MANUAL) 71 % (42-75)
[2018-04-10 12:25] VITALS: BP 144/97
[2018-04-10] MEDS ORDERED: LIDOCAINE-MPF 2%, 2ML ONE (12:32)
[2018-04-10] MEDS ORDERED: RITUXIMAB IV ONE (13:30)
[2018-04-10] MEDS ORDERED: SODIUM CHLORIDE 0.9% IV ONE (13:30)
[2018-04-10] MEDS: SODIUM CHLORIDE 0.9% 1,000 ML IV SCH ×2 (13:34→23:03)
[2018-04-10] MEDS: FAMOTIDINE 20 MG/2 ML IVPush SCH (13:34)
[2018-04-10] MEDS: ENOXAPARIN 40 MG/0.4 ML SQ SCH (13:34)
[2018-04-10] MEDS: DIPHENHYDRAMINE 50 MG/ML, 1ML IVPush SCH (13:35)
[2018-04-10] MEDS: predniSONE 50MG TABLET PO SCH (13:36)
[2018-04-10] MEDS ORDERED: FOSAPREPITANT 150 MG in SODIUM CHLORIDE 0.9% 145 ML IV ONE (19:00)
[2018-04-10] MEDS ORDERED: PROCHLORPERAZINE 10MG TABLET PO PRN (19:30)
[2018-04-10 20:39] VITALS: BP 125/84
[2018-04-10] MEDS: ONDANSETRON 8 MG in SODIUM CHLORIDE 0.9% 50 ML IVPB SCH (21:00)
[2018-04-10] MEDS: [UNRECOGNIZED DRUG - OTHER] IV SCH (21:56)
[2018-04-10] MEDS: VINCRISTINE IV SCH (21:56)
[2018-04-10] MEDS: ETOPOSIDE IV SCH (21:56)
[2018-04-10] MEDS: DOXORUBICIN IV SCH (21:56)
[2018-04-11 00:49] VITALS: BP 123/81
[2018-04-11 07:14] VITALS: BP 117/75
[2018-04-11 07:20] LABS: ALANINE AMINOTRANSFERASE 15 U/L (12-78); ALBUMIN 2.9 g/dL (3.4-5.0); ANION GAP 9 mmol/L (5-15); CALCIUM 8.5 mg/dL (8.5-10.1); CHLORIDE 108 mmol/L (98-107); CREATININE 0.81 mg/dL (0.7-1.3)
[2018-04-11 07:23] LABS: ALKALINE PHOSPHATASE 90 U/L (45-117); BILIRUBIN,TOTAL 0.4 mg/dL (0.2-1.0); TOTAL PROTEIN 6.4 g/dL (6.4-8.2)
[2018-04-11 07:28] LABS: MEAN CORPUSCULAR HEMOGLOBIN 32.6 pg (27.5-34.5); MEAN CORPUSCULAR HGB CONC 33.8 g/dL (33.2-36.2); MEAN CORPUSCULAR VOLUME 96.4 fL (81-97); MEAN PLATELET VOLUME 7.3 fL (7.4-10.4); PLATELET COUNT 379 x10^3/uL (130-400); RED BLOOD COUNT 3.13 x10^6/uL (4.38-5.82); RED CELL DISTRIBUTION WIDTH 17.3 % (9.4-14.8)
[2018-04-11 07:33] LABS: MD YES
[2018-04-11 07:49] LABS: BAND#(MANUAL) 0.38 x10^3/uL; BANDS%(MANUAL) 3 % (0-7); LYMPH#(MANUAL) 0.64 x10^3/uL (1-3.4); LYMPHS% (MANUAL) 5 % (22-44); MONOS#(MANUAL) 0.51 x10^3/uL (0.3-2.7); MONOS% (MANUAL) 4 % (2-9); SEG#(MANUAL) 11.26 x10^3/uL (1.8-6.8); SEGS% (MANUAL) 88 % (42-75)
[2018-04-11 07:51] LABS: <PLATELET ESTIMATE> ADEQUATE; <PLT MORPHOLOGY> NORMAL PLT MORPH; ANISOCYTOSIS 1+; POLYCHROMASIA 1+
[2018-04-11 13:12] VITALS: BP 110/69
[2018-04-11] MEDS: ENOXAPARIN 40 MG/0.4 ML SQ SCH (14:24)
[2018-04-11 19:18] VITALS: BP 132/67
[2018-04-11] MEDS: ONDANSETRON 8 MG in SODIUM CHLORIDE 0.9% 50 ML IVPB SCH (21:15)
[2018-04-11] MEDS: DIPHENHYDRAMINE 50 MG/ML, 1ML IVPush SCH (21:15)
[2018-04-11] MEDS: FAMOTIDINE 20 MG/2 ML IVPush SCH (21:15)
[2018-04-11] MEDS: SODIUM CHLORIDE 0.9% 1,000 ML IV SCH (21:16)
[2018-04-11] MEDS: predniSONE 50MG TABLET PO SCH (21:16)
[2018-04-11] MEDS: [UNRECOGNIZED DRUG - OTHER] IV SCH (22:02)
[2018-04-11] MEDS: ETOPOSIDE IV SCH (22:02)
[2018-04-11] MEDS: DOXORUBICIN IV SCH (22:02)
[2018-04-11] MEDS: VINCRISTINE IV SCH (22:02)
[2018-04-12 01:40] VITALS: BP 113/77
[2018-04-12 06:22] LABS: MEAN CORPUSCULAR HEMOGLOBIN 31.9 pg (27.5-34.5); MEAN CORPUSCULAR HGB CONC 33.3 g/dL (33.2-36.2); MEAN CORPUSCULAR VOLUME 95.8 fL (81-97); MEAN PLATELET VOLUME 7.1 fL (7.4-10.4); PLATELET COUNT 312 x10^3/uL (130-400)
[2018-04-12 06:26] LABS: ALANINE AMINOTRANSFERASE 18 U/L (12-78); ANION GAP 9 mmol/L (5-15); CALCIUM 8.4 mg/dL (8.5-10.1); CHLORIDE 110 mmol/L (98-107); CREATININE 0.84 mg/dL (0.7-1.3)
[2018-04-12 06:29] LABS: ALKALINE PHOSPHATASE 86 U/L (45-117); BILIRUBIN,TOTAL 0.2 mg/dL (0.2-1.0); TOTAL PROTEIN 6.4 g/dL (6.4-8.2)
[2018-04-12 07:11] VITALS: BP 148/81
[2018-04-12] MEDS: SODIUM CHLORIDE 0.9% 1,000 ML IV SCH ×2 (07:25→17:50)
[2018-04-12 08:55] LABS: BASOPHILS # (AUTO) 0.01 x10^3/uL (0-0.1); BASOPHILS % (AUTO) 0 % (0-1); EOSINOPHILS % (AUTO) 0 % (1-7); LYMPHOCYTES # (AUTO) 0.36 x10^3/uL (1-3.4); LYMPHOCYTES % (AUTO) 4 % (22-44); MD SCAN; MONOCYTES # (AUTO) 0.09 x10^3/uL (0.2-0.8); MONOCYTES % (AUTO) 1 % (2-9); NEUTROPHILS % (AUTO) 95 % (42-75)
[2018-04-12 12:56] VITALS: BP 136/68
[2018-04-12] MEDS: ENOXAPARIN 40 MG/0.4 ML SQ SCH (13:54)
[2018-04-12 20:47] VITALS: BP 142/85
[2018-04-12] MEDS: ONDANSETRON 8 MG in SODIUM CHLORIDE 0.9% 50 ML IVPB SCH (21:10)
[2018-04-12] MEDS: FAMOTIDINE 20 MG/2 ML IVPush SCH (21:10)
[2018-04-12] MEDS: predniSONE 50MG TABLET PO SCH (21:10)
[2018-04-12] MEDS: DIPHENHYDRAMINE 50 MG/ML, 1ML IVPush SCH (21:21)
[2018-04-12] MEDS: [UNRECOGNIZED DRUG - OTHER] IV SCH (22:21)
[2018-04-12] MEDS: DOXORUBICIN IV SCH (22:21)
[2018-04-12] MEDS: ETOPOSIDE IV SCH (22:21)
[2018-04-12] MEDS: VINCRISTINE IV SCH (22:21)
[2018-04-13 04:55] VITALS: BP 130/81
[2018-04-13] MEDS: SODIUM CHLORIDE 0.9% 1,000 ML IV SCH ×2 (04:57→14:41)
[2018-04-13 05:56] LABS: BASOPHILS % (AUTO) 0 % (0-1); EOSINOPHILS # (AUTO) 0.17 x10^3/uL (0-0.4); EOSINOPHILS % (AUTO) 2 % (1-7); LYMPHOCYTES # (AUTO) 0.39 x10^3/uL (1-3.4); LYMPHOCYTES % (AUTO) 4 % (22-44); MD NO; MEAN CORPUSCULAR HEMOGLOBIN 33.2 pg (27.5-34.5); MEAN CORPUSCULAR HGB CONC 34.6 g/dL (33.2-36.2); MEAN CORPUSCULAR VOLUME 95.8 fL (81-97); MEAN PLATELET VOLUME 7.2 fL (7.4-10.4); MONOCYTES # (AUTO) 0.03 x10^3/uL (0.2-0.8); MONOCYTES % (AUTO) 0 % (2-9); NEUTROPHILS # (AUTO) 8.57 x10^3/uL (1.8-6.8); NEUTROPHILS % (AUTO) 94 % (42-75); PLATELET COUNT 273 x10^3/uL (130-400); RED BLOOD COUNT 3.14 x10^6/uL (4.38-5.82); RED CELL DISTRIBUTION WIDTH 17.4 % (9.4-14.8)
[2018-04-13 05:59] LABS: ALANINE AMINOTRANSFERASE 16 U/L (12-78); ALBUMIN 2.9 g/dL (3.4-5.0); ANION GAP 9 mmol/L (5-15); CALCIUM 8.2 mg/dL (8.5-10.1); CHLORIDE 110 mmol/L (98-107); CREATININE 0.79 mg/dL (0.7-1.3)
[2018-04-13 06:01] LABS: ALKALINE PHOSPHATASE 77 U/L (45-117); BILIRUBIN,TOTAL 0.3 mg/dL (0.2-1.0)
[2018-04-13 09:20] VITALS: BP 128/79
[2018-04-13 14:28] VITALS: BP 132/80
[2018-04-13] MEDS: ENOXAPARIN 40 MG/0.4 ML SQ SCH (14:41)
[2018-04-13 20:20] VITALS: BP 110/60
[2018-04-13] MEDS: predniSONE 50MG TABLET PO SCH (20:31)
[2018-04-13] MEDS: FAMOTIDINE 20 MG/2 ML IVPush SCH (21:15)
[2018-04-13] MEDS: ONDANSETRON 8 MG in SODIUM CHLORIDE 0.9% 50 ML IVPB SCH (21:15)
[2018-04-13] MEDS: DIPHENHYDRAMINE 50 MG/ML, 1ML IVPush SCH (22:14)
[2018-04-13] MEDS: [UNRECOGNIZED DRUG - OTHER] IV SCH (22:28)
[2018-04-13] MEDS: DOXORUBICIN IV SCH (22:28)
[2018-04-13] MEDS: VINCRISTINE IV SCH (22:28)
[2018-04-13] MEDS: ETOPOSIDE IV SCH (22:28)
[2018-04-14] MEDS: SODIUM CHLORIDE 0.9% 1,000 ML IV SCH ×3 (00:10→19:38)
[2018-04-14 02:57] VITALS: BP 146/83
[2018-04-14 05:33] LABS: BASOPHILS % (AUTO) 0 % (0-1); EOSINOPHILS % (AUTO) 0 % (1-7); LYMPHOCYTES # (AUTO) 0.34 x10^3/uL (1-3.4); LYMPHOCYTES % (AUTO) 5 % (22-44); MD NO; MEAN CORPUSCULAR HEMOGLOBIN 31.9 pg (27.5-34.5); MEAN CORPUSCULAR HGB CONC 33.7 g/dL (33.2-36.2); MEAN CORPUSCULAR VOLUME 94.7 fL (81-97); MEAN PLATELET VOLUME 7.2 fL (7.4-10.4); MONOCYTES # (AUTO) 0.04 x10^3/uL (0.2-0.8); MONOCYTES % (AUTO) 1 % (2-9); NEUTROPHILS # (AUTO) 6.57 x10^3/uL (1.8-6.8); NEUTROPHILS % (AUTO) 94 % (42-75); PLATELET COUNT 251 x10^3/uL (130-400)
[2018-04-14 05:40] LABS: ALBUMIN 2.9 g/dL (3.4-5.0); ANION GAP 9 mmol/L (5-15); CALCIUM 8.6 mg/dL (8.5-10.1); CHLORIDE 107 mmol/L (98-107)
[2018-04-14 05:43] LABS: ALANINE AMINOTRANSFERASE 18 U/L (12-78); ALKALINE PHOSPHATASE 80 U/L (45-117); BILIRUBIN,TOTAL 0.4 mg/dL (0.2-1.0)
[2018-04-14 06:42] VITALS: BP 170/92
[2018-04-14 07:19] VITALS: BP 148/83
[2018-04-14 13:19] VITALS: BP 143/88
[2018-04-14] MEDS: ENOXAPARIN 40 MG/0.4 ML SQ SCH (14:00)
[2018-04-14 19:03] VITALS: BP 138/87
[2018-04-14] MEDS: predniSONE 50MG TABLET PO SCH (20:06)
[2018-04-15] MEDS ORDERED: CYCLOPHOSPHAMIDE IV ONE
[2018-04-15] MEDS ORDERED: SODIUM CHLORIDE 0.9% IV ONE
[2018-04-15] MEDS ORDERED: DIPHENHYDRAMINE 50 MG/ML, 1ML ONE (00:23)
[2018-04-15] MEDS: ONDANSETRON 8 MG in SODIUM CHLORIDE 0.9% 50 ML IVPB SCH (00:26)
[2018-04-15] MEDS ORDERED: FAMOTIDINE 20 MG/2 ML ONE (00:35)
[2018-04-15 00:46] VITALS: BP 138/86
[2018-04-15] MEDS: FAMOTIDINE 20 MG/2 ML IVPush SCH (00:47)
[2018-04-15] MEDS: DIPHENHYDRAMINE 50 MG/ML, 1ML IVPush SCH (00:47)
[2018-04-15] MEDS: SODIUM CHLORIDE 0.9% 1,000 ML IV SCH (04:54)
[2018-04-15 05:28] LABS: MEAN CORPUSCULAR HGB CONC 33.8 g/dL (33.2-36.2); MEAN CORPUSCULAR VOLUME 94.7 fL (81-97); PLATELET COUNT 219 x10^3/uL (130-400); RED BLOOD COUNT 2.95 x10^6/uL (4.38-5.82)
[2018-04-15 05:33] LABS: CHLORIDE 106 mmol/L (98-107)
[2018-04-15 05:44] LABS: ALANINE AMINOTRANSFERASE 25 U/L (12-78); ALBUMIN 2.8 g/dL (3.4-5.0); ALKALINE PHOSPHATASE 70 U/L (45-117); ANION GAP 10 mmol/L (5-15); BILIRUBIN,TOTAL 0.5 mg/dL (0.2-1.0); CALCIUM 7.8 mg/dL (8.5-10.1); CREATININE 0.68 mg/dL (0.7-1.3); TOTAL PROTEIN 5.7 g/dL (6.4-8.2)
[2018-04-15 06:18] LABS: BASOPHILS % (AUTO) 0 % (0-1); EOSINOPHILS % (AUTO) 0 % (1-7); LYMPHOCYTES # (AUTO) 0.21 x10^3/uL (1-3.4); LYMPHOCYTES % (AUTO) 4 % (22-44); MONOCYTES # (AUTO) 0.03 x10^3/uL (0.2-0.8); MONOCYTES % (AUTO) 1 % (2-9); NEUTROPHILS # (AUTO) 5.26 x10^3/uL (1.8-6.8); NEUTROPHILS % (AUTO) 96 % (42-75)
[2018-04-15 06:19] LABS: MD SCAN
[2018-04-15 07:15] VITALS: BP 136/82
== END 2018-04-15 08:15 | disposition home or self-care (01) | DRG 847 ==
LOC: 3NW 08:33
PROVIDERS: ADMIT Internal Medicine Hematology & Oncology; ATTEND Internal Medicine Hematology & Oncology
PROC: 02HV33Z Insertion of Infusion Device into Superior Vena Cava, Percutaneous Approach (ICD-10-PCS; principal; 2018-04-10)
PROC: B5181ZA Fluoroscopy of Superior Vena Cava using Low Osmolar Contrast, Guidance (ICD-10-PCS; 2018-04-10)
PROC: B548ZZA Ultrasonography of Superior Vena Cava, Guidance (ICD-10-PCS; 2018-04-10)
DX: Z51.11 Encounter for antineoplastic chemotherapy (principal); C82.90 Follicular lymphoma, unspecified, unspecified site; Z94.84 Stem cells transplant status; Z87.01 Personal history of pneumonia (recurrent); E11.9 Type 2 diabetes mellitus without complications; D72.828 Other elevated white blood cell count; T38.0X5A Adverse effect of glucocorticoids and synthetic analogues, initial encounter; Y92.89 Other specified places as the place of occurrence of the external cause; D64.89 Other specified anemias
CPT/HCPCS: 36415; 77001; S0028; 36569; 76937; 80053; 83615; 84550; 85025; G0378; J1453; J1650; J2405; J3490; J9000; J9070; J9181; C1751; J1200; J7030; J7050; J7512; J9310; J9370

== ENCOUNTER 2018-05-08 08:00 | Inpatient (IN) | payer OTHER ==
[~2018-05-08] VITALS: Ht 182.9 cm; Wt 100.3 kg
[2018-05-08 09:57] LABS: BASOPHILS # (AUTO) 0.05 x10^3/uL (0-0.1); BASOPHILS % (AUTO) 1 % (0-1); EOSINOPHILS # (AUTO) 0.04 x10^3/uL (0-0.4); EOSINOPHILS % (AUTO) 1 % (1-7); LYMPHOCYTES # (AUTO) 0.51 x10^3/uL (1-3.4); LYMPHOCYTES % (AUTO) 7 % (22-44); MD NO; MEAN CORPUSCULAR HEMOGLOBIN 34.4 pg (27.5-34.5); MEAN CORPUSCULAR HGB CONC 34.3 g/dL (33.2-36.2); MEAN CORPUSCULAR VOLUME 100.3 fL (81-97); MEAN PLATELET VOLUME 6.7 fL (7.4-10.4); MONOCYTES # (AUTO) 1.05 x10^3/uL (0.2-0.8); MONOCYTES % (AUTO) 15 % (2-9); NEUTROPHILS # (AUTO) 5.55 x10^3/uL (1.8-6.8); NEUTROPHILS % (AUTO) 77 % (42-75); PLATELET COUNT 339 x10^3/uL (130-400); RED BLOOD COUNT 3.06 x10^6/uL (4.38-5.82)
[2018-05-08 10:00] VITALS: BP 134/84
[2018-05-08 10:09] LABS: ALANINE AMINOTRANSFERASE 18 U/L (12-78); ALBUMIN 3.4 g/dL (3.4-5.0); ANION GAP 4 mmol/L (5-15); CALCIUM 8.7 mg/dL (8.5-10.1); CHLORIDE 109 mmol/L (98-107); CREATININE 0.84 mg/dL (0.7-1.3)
[2018-05-08 10:11] LABS: ALKALINE PHOSPHATASE 90 U/L (45-117); BILIRUBIN,TOTAL 0.2 mg/dL (0.2-1.0); TOTAL PROTEIN 6.3 g/dL (6.4-8.2)
[2018-05-08] MEDS ORDERED: FAMOTIDINE 20 MG/2 ML IVPush ONE (11:00)
[2018-05-08] MEDS ORDERED: ACETAMINOPHEN 325 MG TABLET PO ONE (11:00)
[2018-05-08] MEDS ORDERED: RITUXIMAB IV ONE (11:00)
[2018-05-08] MEDS ORDERED: SODIUM CHLORIDE 0.9% IV ONE (11:00)
[2018-05-08] MEDS ORDERED: DIPHENHYDRAMINE 50 MG/ML, 1ML IVPush ONE (11:00)
[2018-05-08 12:35] VITALS: BP 107/67
[2018-05-08] MEDS ORDERED: FOSAPREPITANT 150 MG in SODIUM CHLORIDE 0.9% 145 ML IV ONE (17:00)
[2018-05-08] MEDS ORDERED: predniSONE 50MG TABLET PO SCH (17:00)
[2018-05-08] MEDS: ONDANSETRON 8 MG in SODIUM CHLORIDE 0.9% 50 ML IVPB SCH (19:08)
[2018-05-08 19:37] VITALS: BP 111/70
[2018-05-08] MEDS: SODIUM CHLORIDE 0.9% IV SCH (20:03)
[2018-05-08] MEDS: DOXORUBICIN IV SCH (20:03)
[2018-05-08] MEDS: ETOPOSIDE IV SCH (20:03)
[2018-05-08] MEDS ORDERED: MONTELUKAST 10 MG TABLET PO SCH (21:00)
[2018-05-09 03:30] VITALS: BP 113/73
[2018-05-09 04:04] LABS: ALANINE AMINOTRANSFERASE 18 U/L (12-78); ALBUMIN 3.2 g/dL (3.4-5.0); ANION GAP 9 mmol/L (5-15); CALCIUM 8.6 mg/dL (8.5-10.1); CHLORIDE 108 mmol/L (98-107); CREATININE 0.91 mg/dL (0.7-1.3)
[2018-05-09 04:06] LABS: ALKALINE PHOSPHATASE 91 U/L (45-117); BILIRUBIN,TOTAL 0.3 mg/dL (0.2-1.0); TOTAL PROTEIN 6.3 g/dL (6.4-8.2)
[2018-05-09 04:10] LABS: BASOPHILS % (AUTO) 0 % (0-1); EOSINOPHILS % (AUTO) 0 % (1-7); LYMPHOCYTES # (AUTO) 0.33 x10^3/uL (1-3.4); LYMPHOCYTES % (AUTO) 4 % (22-44); MD NO; MEAN CORPUSCULAR HEMOGLOBIN 34.1 pg (27.5-34.5); MEAN CORPUSCULAR HGB CONC 34.1 g/dL (33.2-36.2); MEAN PLATELET VOLUME 7.1 fL (7.4-10.4); MONOCYTES # (AUTO) 0.02 x10^3/uL (0.2-0.8); MONOCYTES % (AUTO) 0 % (2-9); NEUTROPHILS # (AUTO) 8.31 x10^3/uL (1.8-6.8); NEUTROPHILS % (AUTO) 96 % (42-75); PLATELET COUNT 305 x10^3/uL (130-400); RED BLOOD COUNT 3.13 x10^6/uL (4.38-5.82); RED CELL DISTRIBUTION WIDTH 21.4 % (9.4-14.8)
[2018-05-09 06:42] VITALS: BP 121/70
[2018-05-09] MEDS ORDERED: HYDROCHLOROTHIAZIDE 25 MG TABLET PO SCH (09:00)
[2018-05-09] MEDS ORDERED: TAMSULOSIN 0.4 MG CAP.ER.24H PO SCH (09:00)
[2018-05-09 12:44] VITALS: BP 121/75
[2018-05-09] MEDS: predniSONE 50MG TABLET PO SCH (14:49)
[2018-05-09] MEDS ORDERED: [UNRECOGNIZED DRUG - OTHER] IV SCH (20:00)
[2018-05-09] MEDS ORDERED: LACTATED RINGERS IV SCH (20:00)
[2018-05-09] MEDS: ONDANSETRON 8 MG in SODIUM CHLORIDE 0.9% 50 ML IVPB SCH (20:38)
[2018-05-09 20:53] VITALS: BP 123/74
[2018-05-09] MEDS: DIPHENHYDRAMINE 50 MG/ML, 1ML IVPush SCH (22:14)
[2018-05-09] MEDS: ETOPOSIDE IV SCH (22:15)
[2018-05-09] MEDS: SODIUM CHLORIDE 0.9% IV SCH (22:15)
[2018-05-09] MEDS: DOXORUBICIN IV SCH (22:15)
[2018-05-10 05:10] VITALS: BP 109/64
[2018-05-10 05:36] LABS: CALCIUM 8.2 mg/dL (8.5-10.1); CHLORIDE 108 mmol/L (98-107)
[2018-05-10 05:38] LABS: MEAN CORPUSCULAR HEMOGLOBIN 33.5 pg (27.5-34.5); MEAN CORPUSCULAR HGB CONC 33.6 g/dL (33.2-36.2); MEAN CORPUSCULAR VOLUME 99.4 fL (81-97); MEAN PLATELET VOLUME 7.1 fL (7.4-10.4); PLATELET COUNT 296 x10^3/uL (130-400); RED CELL DISTRIBUTION WIDTH 21.3 % (9.4-14.8)
[2018-05-10 05:40] LABS: ALANINE AMINOTRANSFERASE 18 U/L (12-78); ALKALINE PHOSPHATASE 79 U/L (45-117); ANION GAP 7 mmol/L (5-15); BILIRUBIN,TOTAL 0.2 mg/dL (0.2-1.0); CREATININE 0.76 mg/dL (0.7-1.3); TOTAL PROTEIN 5.8 g/dL (6.4-8.2)
[2018-05-10 06:04] LABS: BASOPHILS % (AUTO) 0 % (0-1); EOSINOPHILS % (AUTO) 0 % (1-7); LYMPHOCYTES % (AUTO) 3 % (22-44); MD SCAN; MONOCYTES # (AUTO) 0.46 x10^3/uL (0.2-0.8); MONOCYTES % (AUTO) 3 % (2-9); NEUTROPHILS # (AUTO) 13.76 x10^3/uL (1.8-6.8); NEUTROPHILS % (AUTO) 94 % (42-75)
[2018-05-10] MEDS: POLYETHYLENE GLYCOL 17 GM PACKET PO SCH (07:54)
[2018-05-10] MEDS: SENNA/DOCUSATE TABLET PO SCH (07:54)
[2018-05-10 08:18] VITALS: BP 130/79
[2018-05-10 13:08] VITALS: BP 106/65
[2018-05-10] MEDS: predniSONE 50MG TABLET PO SCH (17:03)
[2018-05-10 18:59] VITALS: BP 125/77
[2018-05-10] MEDS: ONDANSETRON 8 MG in SODIUM CHLORIDE 0.9% 50 ML IVPB SCH (20:12)
[2018-05-10] MEDS: DIPHENHYDRAMINE 50 MG/ML, 1ML IVPush SCH (21:51)
[2018-05-10] MEDS ORDERED: LACTATED RINGERS IV ONE (22:30)
[2018-05-10] MEDS ORDERED: [UNRECOGNIZED DRUG - OTHER] IV ONE (22:30)
[2018-05-10] MEDS: SODIUM CHLORIDE 0.9% IV SCH (23:58)
[2018-05-10] MEDS: DOXORUBICIN IV SCH (23:58)
[2018-05-10] MEDS: ETOPOSIDE IV SCH (23:58)
[2018-05-11 03:34] VITALS: BP 117/69
[2018-05-11 03:54] LABS: ALANINE AMINOTRANSFERASE 25 U/L (12-78); ANION GAP 9 mmol/L (5-15); CALCIUM 8.5 mg/dL (8.5-10.1); CHLORIDE 109 mmol/L (98-107)
[2018-05-11 03:56] LABS: ALKALINE PHOSPHATASE 78 U/L (45-117); BILIRUBIN,TOTAL 0.3 mg/dL (0.2-1.0); TOTAL PROTEIN 5.8 g/dL (6.4-8.2)
[2018-05-11 04:08] LABS: BASOPHILS % (AUTO) 0 % (0-1); EOSINOPHILS # (AUTO) 0.01 x10^3/uL (0-0.4); EOSINOPHILS % (AUTO) 0 % (1-7); LYMPHOCYTES # (AUTO) 0.59 x10^3/uL (1-3.4); LYMPHOCYTES % (AUTO) 6 % (22-44); MD NO; MEAN CORPUSCULAR HGB CONC 33.9 g/dL (33.2-36.2); MEAN CORPUSCULAR VOLUME 100.1 fL (81-97); MEAN PLATELET VOLUME 7.1 fL (7.4-10.4); MONOCYTES # (AUTO) 0.12 x10^3/uL (0.2-0.8); MONOCYTES % (AUTO) 1 % (2-9); NEUTROPHILS # (AUTO) 9.38 x10^3/uL (1.8-6.8); NEUTROPHILS % (AUTO) 93 % (42-75); PLATELET COUNT 279 x10^3/uL (130-400); RED BLOOD COUNT 3.01 x10^6/uL (4.38-5.82)
[2018-05-11 09:28] VITALS: BP 132/67
[2018-05-11] MEDS: POLYETHYLENE GLYCOL 17 GM PACKET PO SCH (10:56)
[2018-05-11] MEDS: SENNA/DOCUSATE TABLET PO SCH (10:56)
[2018-05-11] MEDS ORDERED: HYDROcodone/APAP 5/325 TABLET PO PRN (16:00)
[2018-05-11] MEDS: predniSONE 50MG TABLET PO SCH (16:06)
[2018-05-11 16:16] VITALS: BP 120/67
[2018-05-11 19:48] VITALS: BP 130/76
[2018-05-11] MEDS: ONDANSETRON 8 MG in SODIUM CHLORIDE 0.9% 50 ML IVPB SCH (20:06)
[2018-05-11 20:57] LABS: MICROSCOPIC NOT IND
[2018-05-11 21:05] LABS: CULTURE INDICATED? NO
[2018-05-11] MEDS: DIPHENHYDRAMINE 50 MG/ML, 1ML IVPush SCH (22:02)
[2018-05-12] MEDS: SODIUM CHLORIDE 0.9% IV SCH (00:23)
[2018-05-12] MEDS: DOXORUBICIN IV SCH (00:23)
[2018-05-12] MEDS: ETOPOSIDE IV SCH (00:23)
[2018-05-12] MEDS ORDERED: [UNRECOGNIZED DRUG - OTHER] IV ONE ×2 (00:45→13:00)
[2018-05-12] MEDS ORDERED: SODIUM CHLORIDE 0.9% IV ONE ×2 (00:45→13:00)
[2018-05-12 04:23] VITALS: BP 114/69
[2018-05-12 05:07] LABS: ALANINE AMINOTRANSFERASE 22 U/L (12-78); ANION GAP 10 mmol/L (5-15); CALCIUM 6.4 mg/dL (8.5-10.1); CHLORIDE 108 mmol/L (98-107); CREATININE 0.72 mg/dL (0.7-1.3)
[2018-05-12 05:09] LABS: ALKALINE PHOSPHATASE 76 U/L (45-117); BILIRUBIN,TOTAL 0.5 mg/dL (0.2-1.0); TOTAL PROTEIN 5.7 g/dL (6.4-8.2)
[2018-05-12 05:40] LABS: MEAN CORPUSCULAR HEMOGLOBIN 33.9 pg (27.5-34.5); MEAN CORPUSCULAR HGB CONC 33.9 g/dL (33.2-36.2); MEAN PLATELET VOLUME 7.2 fL (7.4-10.4); PLATELET COUNT 276 x10^3/uL (130-400); RED BLOOD COUNT 2.99 x10^6/uL (4.38-5.82); RED CELL DISTRIBUTION WIDTH 20.5 % (9.4-14.8)
[2018-05-12 05:45] LABS: BASOPHILS % (AUTO) 0 % (0-1); EOSINOPHILS % (AUTO) 0 % (1-7); LYMPHOCYTES % (AUTO) 3 % (22-44); MD SCAN; MONOCYTES % (AUTO) 1 % (2-9); NEUTROPHILS # (AUTO) 7.55 x10^3/uL (1.8-6.8); NEUTROPHILS % (AUTO) 96 % (42-75)
[2018-05-12] MEDS: SENNA/DOCUSATE TABLET PO SCH (08:41)
[2018-05-12] MEDS: POLYETHYLENE GLYCOL 17 GM PACKET PO SCH (08:41)
[2018-05-12 09:30] VITALS: BP 115/70
[2018-05-12 13:25] VITALS: BP 117/76
[2018-05-12] MEDS: predniSONE 50MG TABLET PO SCH (14:58)
[2018-05-12 19:10] VITALS: BP 125/74
[2018-05-12] MEDS ORDERED: ONDANSETRON 8 MG in SODIUM CHLORIDE 0.9% 50 ML IVPB ONE (20:00)
[2018-05-13] MEDS: DIPHENHYDRAMINE 50 MG/ML, 1ML IVPush SCH (00:36)
[2018-05-13] MEDS ORDERED: CYCLOPHOSPHAMIDE IV ONE (02:00)
[2018-05-13] MEDS ORDERED: SODIUM CHLORIDE 0.9% IV ONE (02:00)
[2018-05-13 03:34] VITALS: BP 117/69
[2018-05-13 06:08] LABS: ALANINE AMINOTRANSFERASE 25 U/L (12-78); ANION GAP 7 mmol/L (5-15); CALCIUM 7.9 mg/dL (8.5-10.1); CHLORIDE 110 mmol/L (98-107); CREATININE 0.67 mg/dL (0.7-1.3)
[2018-05-13 06:09] LABS: BASOPHILS % (AUTO) 0 % (0-1); EOSINOPHILS # (AUTO) 0.01 x10^3/uL (0-0.4); EOSINOPHILS % (AUTO) 0 % (1-7); LYMPHOCYTES # (AUTO) 0.35 x10^3/uL (1-3.4); LYMPHOCYTES % (AUTO) 5 % (22-44); MD NO; MEAN CORPUSCULAR HEMOGLOBIN 34.1 pg (27.5-34.5); MEAN CORPUSCULAR HGB CONC 33.8 g/dL (33.2-36.2); MEAN PLATELET VOLUME 7.1 fL (7.4-10.4); MONOCYTES # (AUTO) 0.15 x10^3/uL (0.2-0.8); MONOCYTES % (AUTO) 2 % (2-9); NEUTROPHILS # (AUTO) 7.08 x10^3/uL (1.8-6.8); NEUTROPHILS % (AUTO) 93 % (42-75); PLATELET COUNT 281 x10^3/uL (130-400); RED CELL DISTRIBUTION WIDTH 20.2 % (9.4-14.8)
[2018-05-13 06:10] LABS: ALKALINE PHOSPHATASE 73 U/L (45-117); BILIRUBIN,TOTAL 0.6 mg/dL (0.2-1.0); TOTAL PROTEIN 5.6 g/dL (6.4-8.2)
[2018-05-13 07:55] VITALS: BP 127/70
== END 2018-05-13 08:48 | disposition home or self-care (01) | DRG 847 ==
LOC: 3NW 08:13
PROVIDERS: ADMIT Internal Medicine Hematology & Oncology; ATTEND Internal Medicine Hematology & Oncology
PROC: 02HV33Z Insertion of Infusion Device into Superior Vena Cava, Percutaneous Approach (ICD-10-PCS; principal; 2018-05-08)
PROC: B5181ZA Fluoroscopy of Superior Vena Cava using Low Osmolar Contrast, Guidance (ICD-10-PCS; 2018-05-08)
PROC: B548ZZA Ultrasonography of Superior Vena Cava, Guidance (ICD-10-PCS; 2018-05-08)
PROC: 5A1935Z Respiratory Ventilation, Less than 24 Consecutive Hours (ICD-10-PCS; 2018-05-11)
PROC: 3E04305 Introduction of Other Antineoplastic into Central Vein, Percutaneous Approach (ICD-10-PCS; 2018-05-13)
DX: Z51.11 Encounter for antineoplastic chemotherapy (principal); C82.90 Follicular lymphoma, unspecified, unspecified site; Z94.84 Stem cells transplant status; G47.00 Insomnia, unspecified; K59.00 Constipation, unspecified; E11.40 Type 2 diabetes mellitus with diabetic neuropathy, unspecified; R81 Glycosuria; Z87.891 Personal history of nicotine dependence
CPT/HCPCS: 36415; 77001; S0028; 36569; 76937; 80053; 81003; 85025; G0378; J1190; J1453; J2405; J7120; J9070; J9181; C1751; J1200; J7030; J7050; J7512; J9000; J9310

== ENCOUNTER → 2018-06-16 | Outpatient (CLI) | payer OTHER | END | disposition home or self-care (01) | LOC: PETCFH 12:54 | PROVIDERS: ATTEND Internal Medicine Hematology & Oncology | DX: C83.38 Diffuse large B-cell lymphoma, lymph nodes of multiple sites (principal); C82.30 Follicular lymphoma grade IIIa, unspecified site; D80.1 Nonfamilial hypogammaglobulinemia | CPT/HCPCS: 78815; A9552 ==